=== PATIENT | female | born 1960 | race Caucasian/White ===

== ENCOUNTER 2017-11-09 11:20 | Observation (INO) | payer BC ==
[2017-11-09] MEDS ORDERED: SODIUM CHLORIDE 0.9% 500 ML IV STA (11:34)
[2017-11-09] MEDS ORDERED: ASPIRIN 81 MG PO STA (11:34)
[2017-11-09] MEDS ORDERED: NITROGLYCERIN SL TABS 0.4 MG TAB SUBLINGUAL STA (11:45)
--- NOTE | 2017-11-09 11:45 | ED ---
General Adult HPI - General Chief complaint: Chest Pain Stated complaint: chest pressure Time Seen by Provider: 11/09/17 11:34 Source: patient, RN notes reviewed Mode of arrival: ambulatory Limitations: no limitations - History of Present Illness Initial comments: 57-year-old female presents to the emergency department with a chief complaint of left-sided chest pain and left-sided neck pain. She states she's been having this on and off for the last week or so. She does admit to history of heart stent in the past. She states that she was shortness of breath and did have an episode of nausea vomiting. She has been sweaty with this on and off as well. She called her psychology intern and she was referred here. She states she did take her baby aspirin this morning. Patient was concerned due to the continued pain so she thought that she should be evaluated.Patient denies any recent fever, chills, back pain, abdominal pain,numbness or tingling, dysuria or hematuria, constipation or diarrhea, headaches or visual changes, or any other current symptoms. - Related Data Home Medications Medication Instructions Recorded Confirmed ALPRAZolam [Xanax] 1 mg PO BID 09/04/14 11/09/17 Aspirin 81 mg PO DAILY 09/04/14 11/09/17 Enalapril [Vasotec] 20 mg PO BID 09/04/14 11/09/17 Metoprolol Tartrate [Lopressor] 100 mg PO BID 09/04/14 11/09/17 Omeprazole [PriLOSEC] 20 mg PO BID 09/04/14 11/09/17 Prasugrel [Effient] 10 mg PO DAILY 09/04/14 11/09/17 Simvastatin [Zocor] 40 mg PO DAILY 09/04/14 11/09/17 amLODIPine [Norvasc] 5 mg PO DAILY 09/04/14 11/09/17 Cholecalciferol [Vitamin D3] 2,000 unit PO DAILY 01/10/16 11/09/17 traZODone HCL 150 - 300 mg PO HS 04/01/16 11/09/17 Folic Acid 1 mg PO DAILY 11/09/17 11/09/17 Allergies Allergy/AdvReac Type Severity Reaction Status Date / Time atorvastatin calcium Allergy Severe Swelling Verified 11/09/17 12:01 [From Lipitor] Penicillins Allergy Severe THROAT Verified 11/09/17 12:01 SWELLS pregabalin [From Lyrica] Allergy Intermediate Hallucinati Verified 11/09/17 12: 01 ons hydrocodone bitartrate AdvReac Intermediate SENSITIVITY Verified 11/09/17 12:01 [From Vicodin] Review of Systems ROS Statement: Those systems with pertinent positive or pertinent negative responses have been documented in the HPI. ROS Other: All systems not noted in ROS Statement are negative. Past Medical History Past Medical History: Cancer, Chest Pain / Angina, CVA/TIA, GERD/Reflux, Hyperlipidemia, Hypertension, Myocardial Infarction ([place]), Seizure Disorder Additional Past Medical History / Comment(s): ovarian ca, uterine ca, liver mass , pituitary tumor- was in ER 09/04/14 with chest pain-discharged 09/05/14 Last Myocardial Infarction Date:: 2005 History of Any Multi-Drug Resistant Organisms: None Reported Past Surgical History: Bariatric Surgery, Ear Surgery, Heart Catheterization With Stent Additional Past Surgical History / Comment(s): oopherectomy, partial hysterectomy,lap band 2011- removed & gastric sleeve in 2012(Dr. Maria)Lt ear surgery, heart cath with stent 2005- not sure if she had stent in 2011. Past Anesthesia/Blood Transfusion Reactions: Previous Problems w/ Anesthesia Additional Past Anesthesia/Blood Transfusion Reaction / Comment(s): hx claustraphobia Date of Last Stent Placement:: 2011? Past Psychological History: Anxiety, Depression Smoking Status: Current every day smoker Past Alcohol Use History: None Reported Past Drug Use History: Marijuana - Past Family History Mother Family Medical History: Cancer, COPD, CVA/TIA, Dementia, Hypertension Additional Family Medical History / Comment(s): colon cancer, heart disease, depression, 07/20/14 Father Family Medical History: Cancer, Diabetes Mellitus, Hypertension, Myocardial Infarction ([place]) Additional Family Medical History / Comment(s): Colon cancer, bipolar, depression Sister(s) Family Medical History: Cancer Additional Family Medical History / Comment(s): 2 sisters with ovarian & uterine ca-one 2013 General Exam - General Exam Comments Initial Comments: General: The patient is awake and alert, in no distress, and does not appear acutely ill. Eye: Pupils are equal, round and reactive to light, extra-ocular movements are intact; there is normal conjunctiva bilaterally. No signs of icterus. Ears, nose, mouth and throat: There are moist mucous membranes and no oral lesions. Neck: The neck is supple, there is no tenderness. Cardiovascular: There is a regular rate and rhythm. No murmur, rub or gallop is appreciated. Respiratory: Lungs are clear to auscultation, respirations are non-labored, breath sounds are equal. No wheezes, stridor, rales, or rhonchi. Gastrointestinal: Soft, non-distended, non-tender abdomen without masses or organomegaly noted. There is no rebound or guarding present. No CVA tenderness. Bowel sounds are unremarkable. Back: There is no tenderness to palpation in the midline. There is no obvious deformity. No rashes noted. Musculoskeletal: Normal ROM, no tenderness, There is no pedal edema. There is no calf tenderness or swelling. Sensation intact. Pulses equal bilaterally 2+. Neurological: CN II-XII intact, There are no obvious motor or sensory deficits. Coordination appears grossly intact. Speech is normal. Skin: Skin is warm and dry and no rashes or lesions are noted. Psychiatric: Cooperative, appropriate mood & affect, normal judgment. Limitations: no limitations Course Vital Signs 11/09/17 11:24 Temperature 97.0 F L Pulse Rate 65 Respiratory 18 Rate Blood Pressure 167/99 O2 Sat by Pulse 100 Oximetry EKG Findings - EKG Comments: EKG Findings:: normal sinus rhythm 60 bpm, normal axis, no atopy, no S-T depressions or elevations, patient does have T-wave inversion in V4 and V5 as well as V3, prolonged QT Medical Decision Making - Medical Decision Making 57-year-old female presents with left-sided chest pain. At this time patient's lab work has been reviewed. Patient continues to have this mild left-sided neck and chest pain. With her history of stents we will admit the patient for unstable angina. Dr. Spear was discussed with by Dr. Fierro who does agree to the admission. - Lab Data Result diagrams: 11/09/17 12:03 11/09/17 12:03 Lab Results 11/09/17 11/09/17 11/09/17 Range/Units 12:03 12:03 12:03 WBC 9.7 (3.8-10.6) k/uL RBC 4.64 (3.80-5.40) m/uL Hgb 12.0 (11.4-16.0) gm/dL Hct 38.3 (34.0-46.0) % MCV 82.4 (80.0-100.0) fL MCH 25.9 (25.0-35.0) pg MCHC 31.5 (31.0-37.0) g/dL RDW 15.0 (11.5-15.5) % Plt Count 366 (150-450) k/uL Neutrophils % 71 % Lymphocytes % 23 % Monocytes % 4 % Eosinophils % 1 % Basophils % 0 % Neutrophils # 6.9 (1.3-7.7) k/uL Lymphocytes # 2.2 (1.0-4.8) k/uL Monocytes # 0.3 (0-1.0) k/uL Eosinophils # 0.1 (0-0.7) k/uL Basophils # 0.0 (0-0.2) k/uL PT (9.0-12.0) sec INR (<1.2) APTT (22.0-30.0) sec Sodium 147 H (137-145) mmol/L Potassium 4.1 (3.5-5.1) mmol/L Chloride 109 H (98-107) mmol/L Carbon Dioxide 24 (22-30) mmol/L Anion Gap 14 mmol/L BUN 10 (7-17) mg/dL Creatinine 0.70 (0.52-1.04) mg/dL Est GFR (CKD-EPI)AfAm >90 (>60 ml/min/1.73 sqM) Est GFR (CKD-EPI)NonAf >90 (>60 ml/min/1.73 sqM) Glucose 111 H (74-99) mg/dL Calcium 9.5 (8.4-10.2) mg/dL Magnesium 2.0 (1.6-2.3) mg/dL Total Bilirubin 0.8 (0.2-1.3) mg/dL AST 16 (14-36) U/L ALT 14 (9-52) U/L Alkaline Phosphatase 64 (38-126) U/L Total Creatine Kinase 58 (30-135) U/L CK-MB (CK-2) <0.2 (0.0-2.4) ng/mL CK-MB (CK-2) Rel Index Troponin I <0.012 (0.000-0.034) ng/mL Total Protein 7.1 (6.3-8.2) g/dL Albumin 4.3 (3.5-5.0) g/dL Urine Color Urine Appearance (Clear) Urine pH (5.0-8.0) Ur Specific C[place] (1.001-1.035) Urine Protein (Negative) Urine Glucose (UA) (Negative) Urine Ketones (Negative) Urine Blood (Negative) Urine Nitrite (Negative) Urine Bilirubin (Negative) Urine Urobilinogen (<2.0) mg/dL Ur Leukocyte Esterase (Negative) 11/09/17 11/09/17 Range/Units 12:03 12:03 WBC (3.8-10.6) k/uL RBC (3.80-5.40) m/uL Hgb (11.4-16.0) gm/dL Hct (34.0-46.0) % MCV (80.0-100.0) fL MCH (25.0-35.0) pg MCHC (31.0-37.0) g/dL RDW (11.5-15.5) % Plt Count (150-450) k/uL Neutrophils % % Lymphocytes % % Monocytes % % Eosinophils % % Basophils % % Neutrophils # (1.3-7.7) k/uL Lymphocytes # (1.0-4.8) k/uL Monocytes # (0-1.0) k/uL Eosinophils # (0-0.7) k/uL Basophils # (0-0.2) k/uL PT 10.8 (9.0-12.0) sec INR 1.1 (<1.2) APTT 26.6 (22.0-30.0) sec Sodium (137-145) mmol/L Potassium (3.5-5.1) mmol/L Chloride (98-107) mmol/L Carbon Dioxide (22-30) mmol/L Anion Gap mmol/L BUN (7-17) mg/dL Creatinine (0.52-1.04) mg/dL Est GFR (CKD-EPI)AfAm (>60 ml/min/1.73 sqM) Est GFR (CKD-EPI)NonAf (>60 ml/min/1.73 sqM) Glucose (74-99) mg/dL Calcium (8.4-10.2) mg/dL Magnesium (1.6-2.3) mg/dL Total Bilirubin (0.2-1.3) mg/dL AST (14-36) U/L ALT (9-52) U/L Alkaline Phosphatase (38-126) U/L Total Creatine Kinase (30-135) U/L CK-MB (CK-2) (0.0-2.4) ng/mL CK-MB (CK-2) Rel Index Troponin I (0.000-0.034) ng/mL Total Protein (6.3-8.2) g/dL Albumin (3.5-5.0) g/dL Urine Color Yellow Urine Appearance Clear (Clear) Urine pH 6.0 (5.0-8.0) Ur Specific [place] 1.010 (1.001-1.035) Urine Protein Negative (Negative) Urine Glucose (UA) Negative (Negative) Urine Ketones Trace H (Negative) Urine Blood Negative (Negative) Urine Nitrite Negative (Negative) Urine Bilirubin Negative (Negative) Urine Urobilinogen <2.0 (<2.0) mg/dL Ur Leukocyte Esterase Negative (Negative) Disposition Clinical Impression: Unstable angina pectoris Disposition: ADMITTED IP TO THIS [facility] Condition: Stable Referrals: Antonieta Olivia MD [Primary Care Provider] - 1-2 days Decision Date: 11/09/17 Decision Time: 13:29
[2017-11-09 12:16] LABS: Basophils % (A) 0 %; Eosinophils # (A) 0.1 k/uL (0-0.7); Eosinophils % (A) 1 %; HCT 38.3 % (34.0-46.0); Lymphocytes # (A) 2.2 k/uL (1.0-4.8); Lymphocytes % (A) 23 %; MCH 25.9 pg (25.0-35.0); MCHC 31.5 g/dL (31.0-37.0); MCV 82.4 fL (80.0-100.0); Mean Platelet Volume 7.4; Monocytes # (A) 0.3 k/uL (0-1.0); Monocytes % (A) 4 %; Neutrophils # (A) 6.9 k/uL (1.3-7.7); Neutrophils % (A) 71 %; Platelet Count 366 k/uL (150-450); RBC 4.64 m/uL (3.80-5.40); WBC 9.7 k/uL (3.8-10.6)
[2017-11-09 12:28] LABS: INR 1.1 (<1.2); Partial Thromboplastin Time 26.6 sec (22.0-30.0); Prothrombin Time 10.8 sec (9.0-12.0)
[2017-11-09 12:34] LABS: Appearance,Urine Clear (Clear); Bilirubin,Urine Negative (Negative); Blood,Urine Negative (Negative); Color,Urine Yellow; Glucose,Urine (UA) Negative (Negative); Ketones,Urine Trace (Negative); Leukocyte Esterase,Urine Negative (Negative); Nitrite,Urine Negative (Negative); Protein,Urine Negative (Negative); Urobilinogen,Urine <2.0 mg/dL (<2.0)
--- NOTE | 2017-11-09 12:34 | XR ---
EXAMINATION TYPE: XR chest 2V DATE OF EXAM: 11/09/2017 COMPARISON: Prior chest x-ray 01/10/2016 HISTORY: Chest pain TECHNIQUE: Frontal and lateral views of the chest are obtained. FINDINGS: There is no focal air space opacity, pleural effusion, or pneumothorax seen. There are ove rlying cardiac leads. There is a spinal curvature. The cardiac silhouette size is within normal limit s. The osseous structures are intact. IMPRESSION: No acute cardiopulmonary process.
[2017-11-09 12:44] LABS: ALT 14 U/L (9-52); AST 16 U/L (14-36); Albumin 4.3 g/dL (3.5-5.0); Alkaline Phosphatase 64 U/L (38-126); Anion Gap 14 mmol/L; Blood Urea Nitrogen 10 mg/dL (7-17); Calcium 9.5 mg/dL (8.4-10.2); Carbon Dioxide 24 mmol/L (22-30); Chloride 109 mmol/L (98-107); Glucose 111 mg/dL (74-99); Potassium 4.1 mmol/L (3.5-5.1); Sodium 147 mmol/L (137-145); Total Bilirubin 0.8 mg/dL (0.2-1.3); Total Protein 7.1 g/dL (6.3-8.2)
[2017-11-09 12:47] LABS: Creatine Kinase 58 U/L (30-135)
[2017-11-09 12:59] LABS: Creatine Kinase MB <0.2 ng/mL (0.0-2.4); Troponin I <0.012 ng/mL (0.000-0.034)
[2017-11-09] MEDS ORDERED: NITROGLYCERIN SL TABS 0.4 MG TAB SUBLINGUAL PRN (13:29)
[2017-11-09] MEDS ORDERED: HEPARIN SODIUM,PORCINE 5,000 UNIT/ML 1 ML VIAL IV ONE (13:29)
[2017-11-09] MEDS ORDERED: HEPARIN SOD,PORK IN 0.45% NACL 25,000 UNIT in 0.45% NACL 1 500ML.BAG IV SCH (13:30)
[2017-11-09] MEDS ORDERED: SODIUM CHLORIDE 0.9% 1,000 ML IV SCH (13:30)
--- NOTE | 2017-11-09 16:17 | P.HPIM ---
History of Present Illness H&P Date: 11/09/17 Chief Complaint: Chest tightness This is a 57-year-old female, a patient of [facility]. She has a known past medical history of myocardial infarction, coronary disease with cardiac stent, hyperlipidemia, hypertension, GERD, nicotine dependence, uterine cancer and pituitary tumor. Patient reports that for the past week she has had intermittent chest tightness on the left side of her chest that radiates up into the left side of her neck. Also having some shortness of breath, dizziness and sweating. [facility] and was told to present to the emergency room for Arctic workup. Her last stress test was in 2014 was negative. First set of troponins are negative. EKG showing normal sinus rhythm with a nonspecific T-wave abnormality. Patient's been started on IV heparin. Cardiology is consulted. Patient also reports having heartburn- like symptoms and his been taking her omeprazole. Denies any nausea or vomiting. Denies any bowel movement changes or urinary symptoms. Patient does get relief of the chest pain with nitro. Patient reports she is still having chest tightness and pressure currently. Each episode lasts only a few minutes. Review of Systems Review of systems as per HPI otherwise unremarkable Past Medical History Past Medical History: Cancer, Chest Pain / Angina, CVA/TIA, GERD/Reflux, Hyperlipidemia, Hypertension, Myocardial Infarction ([place]), Seizure Disorder Additional Past Medical History / Comment(s): ovarian ca, uterine ca. per previous hx:liver mass, pituitary tumor but pt denies any sx, chemo or radiation.stress test 2015 . "boarderline diabetic- no meds, no bs checks- watches diet" Last Myocardial Infarction Date:: 2005 History of Any Multi-Drug Resistant Organisms: None Reported Past Surgical History: Bariatric Surgery, Ear Surgery, Heart Catheterization With Stent Additional Past Surgical History / Comment(s): oopherectomy, partial hysterectomy,lap band 2011- removed & gastric sleeve in 2012(Dr. Maria)"Lt ear surgery stated has metal in ear so no mri's", heart cath with stent 2005- not sure if she had stent in 2011. Past Anesthesia/Blood Transfusion Reactions: Motion Sickness Additional Past Anesthesia/Blood Transfusion Reaction / Comment(s): hx claustraphobia Date of Last Stent Placement:: 2011? Smoking Status: Current every day smoker - Past Family History Mother Family Medical History: Cancer, COPD, CVA/TIA, Dementia, Hypertension Additional Family Medical History / Comment(s): colon cancer, heart disease, depression, 07/20/14 Father Family Medical History: Cancer, Diabetes Mellitus, Hypertension, Myocardial Infarction ([place]) Additional Family Medical History / Comment(s): Colon cancer, bipolar, depression Sister(s) Family Medical History: Cancer Additional Family Medical History / Comment(s): 2 sisters with ovarian & uterine ca-one 2013 Medications and Allergies Home Medications Medication Instructions Recorded Confirmed Type ALPRAZolam [Xanax] 1 mg PO BID 09/04/14 11/09/17 History Aspirin 81 mg PO DAILY 09/04/14 11/09/17 History Enalapril [Vasotec] 20 mg PO BID 09/04/14 11/09/17 History Metoprolol Tartrate [Lopressor] 100 mg PO BID 09/04/14 11/09/17 History Omeprazole [PriLOSEC] 20 mg PO BID 09/04/14 11/09/17 History Prasugrel [Effient] 10 mg PO DAILY 09/04/14 11/09/17 History Simvastatin [Zocor] 40 mg PO DAILY 09/04/14 11/09/17 History amLODIPine [Norvasc] 5 mg PO DAILY 09/04/14 11/09/17 History Cholecalciferol [Vitamin D3] 2,000 unit PO DAILY 01/10/16 11/09/17 History traZODone HCL 150 - 300 mg PO HS 04/01/16 11/09/17 History Folic Acid 1 mg PO DAILY 11/09/17 11/09/17 History Allergies Allergy/AdvReac Type Severity Reaction Status Date / Time atorvastatin calcium Allergy Severe Swelling Verified 11/09/17 12:01 [From Lipitor] Penicillins Allergy Severe THROAT Verified 11/09/17 12:01 SWELLS pregabalin [From Lyrica] Allergy Intermediate Hallucinati Verified 11/09/17 12: 01 ons hydrocodone bitartrate AdvReac Intermediate SENSITIVITY Verified 11/09/17 12:01 [From Vicodin] Physical Exam Vitals: Vital Signs Temp Pulse Pulse Resp BP BP Pulse Ox 11/09/17 15:54 60 17 11/09/17 14:53 97.6 F 60 17 161/77 99 11/09/17 14:32 97.0 F L 59 L 17 163/90 97 11/09/17 13:45 55 L 17 135/83 98 11/09/17 11:24 97.0 F L 65 18 167/99 100 Intake and Output 11/09/17 11/09/17 11/09/17 06:59 14:59 22:59 Other: Voiding Method Toilet Weight 67.3 kg Head normocephalic Neck supple Lungs clear to auscultation bilaterally no wheezing or crackles Heart regular rate and rhythm S1-S2, no rub or gallop Abdomen is soft nontender nondistended positive bowel sounds no hepatosplenomegaly Extremities no edema Neuro alert and orientated to 3 Results CBC & Chem 7: 11/09/17 12:03 11/09/17 12:03 Labs: Abnormal Lab Results - Last 24 Hours (Table) 11/09/17 11/09/17 Range/Units 12:03 12:03 Sodium 147 H (137-145) mmol/L Chloride 109 H (98-107) mmol/L Glucose 111 H (74-99) mg/dL Urine Ketones Trace H (Negative) Assessment and Plan Assessment: 1. Chest pressure and tightness on the left side of the chest radiating to the neck with shortness of breath, dizziness and diaphoresis. Cardiology consulted. Check serial cardiac enzymes. EKG showing a normal sinus rhythm. First troponin is negative. Last stress test 2015 negative. Chest x-ray negative. Patient started on IV heparin. Continue aspirin. Continue nitro as needed for chest pain 2. History of myocardial infarction with coronary disease and cardiac stents 3. Hyperlipidemia: Resume her statin 4. Essential hypertension: Blood pressures are elevated. Resume her Norvasc and lisinopril 5. GERD 6. Nicotine dependence: Patient is smoking about a pack and half a day. Refusing nicotine patch. Discussed smoking cessation for greater than 3 minutes with patient GI prophylaxis Protonix and DVT prophylaxis IV heparin Time with Patient: Greater than 30 (Greater than 50% of the total time spent in counseling and coordination of care.I performed an examination of the patient and discussed their management with the physician [employer]. I have reviewed the Physician Fire Range Technician's notes and agree with the documented findings and plan of care)
[2017-11-09] MEDS ORDERED: DEXTROSE 5% IN WATER 1,000 ML IV ONE (16:28)
[2017-11-09] MEDS: METOPROLOL TARTRATE 50 MG TAB PO SCH (18:22)
[2017-11-09] MEDS: LISINOPRIL 20 MG TAB PO SCH (18:23)
[2017-11-09] MEDS: ALPRAZolam 1 MG TAB PO SCH (19:26)
[2017-11-09] MEDS: traZODone HCL 50 MG TAB PO SCH (19:26)
[2017-11-09 20:16] LABS: Creatine Kinase 51 U/L (30-135)
[2017-11-09 20:28] LABS: Creatine Kinase MB <0.2 ng/mL (0.0-2.4); Troponin I <0.012 ng/mL (0.000-0.034)
[2017-11-10 01:17] LABS: Creatine Kinase 47 U/L (30-135)
[2017-11-10 01:27] LABS: Creatine Kinase MB <0.2 ng/mL (0.0-2.4)
[2017-11-10 01:31] LABS: Troponin I <0.012 ng/mL (0.000-0.034)
[2017-11-10] MEDS: PANTOPRAZOLE 40 MG TABLET PO SCH (03:30)
[2017-11-10 06:56] LABS: Basophils % (A) 1 %; Eosinophils # (A) 0.1 k/uL (0-0.7); Eosinophils % (A) 2 %; HCT 35.4 % (34.0-46.0); HGB 11.4 gm/dL (11.4-16.0); Lymphocytes # (A) 1.8 k/uL (1.0-4.8); Lymphocytes % (A) 38 %; MCH 26.3 pg (25.0-35.0); MCHC 32.1 g/dL (31.0-37.0); Mean Platelet Volume 7.4; Monocytes # (A) 0.3 k/uL (0-1.0); Monocytes % (A) 5 %; Neutrophils # (A) 2.5 k/uL (1.3-7.7); Neutrophils % (A) 52 %; Platelet Count 340 k/uL (150-450); RBC 4.31 m/uL (3.80-5.40); RDW 14.7 % (11.5-15.5); WBC 4.7 k/uL (3.8-10.6)
[2017-11-10 07:44] LABS: ALT 17 U/L (9-52); AST 20 U/L (14-36); Albumin 3.6 g/dL (3.5-5.0); Alkaline Phosphatase 54 U/L (38-126); Anion Gap 8 mmol/L; Blood Urea Nitrogen 10 mg/dL (7-17); Calcium 9.1 mg/dL (8.4-10.2); Carbon Dioxide 27 mmol/L (22-30); Chloride 107 mmol/L (98-107); Cholesterol 139 mg/dL (<200); Glucose 99 mg/dL (74-99); HDL Cholesterol 53 mg/dL (40-60); LDL Cholesterol,Calculated 69 mg/dL (0-99); Sodium 142 mmol/L (137-145); Total Bilirubin 0.8 mg/dL (0.2-1.3); Total Protein 6.1 g/dL (6.3-8.2); Triglycerides 85 mg/dL (<150)
[2017-11-10] MEDS ORDERED: SODIUM CHLORIDE 0.9% 1,000 ML in EMPTY BAG 1 BAG IV ONE (08:46)
[2017-11-10] MEDS ORDERED: ZOCOR PO SCH (09:00)
[2017-11-10] MEDS: CHOLECALCIFEROL 1,000 UNIT TAB PO SCH (09:38)
[2017-11-10] MEDS: ASPIRIN 325 MG TAB PO SCH (09:38)
[2017-11-10] MEDS: LISINOPRIL 20 MG TAB PO SCH ×2 (09:38→21:04)
[2017-11-10] MEDS: amLODIPine 5 MG TAB PO SCH (09:38)
[2017-11-10] MEDS: PRASUGREL 10 MG TAB PO SCH (09:39)
[2017-11-10] MEDS: ALPRAZolam 1 MG TAB PO SCH ×2 (09:39→21:04)
[2017-11-10] MEDS: METOPROLOL TARTRATE 50 MG TAB PO SCH ×2 (11:43→21:05)
--- NOTE | 2017-11-10 11:46 | P.PN ---
Subjective Progress Note Date: 11/10/17 This is a 57-year-old female, a patient of [facility]. She has a known past medical history of myocardial infarction, coronary disease with cardiac stent, hyperlipidemia, hypertension, GERD, nicotine dependence, uterine cancer and pituitary tumor. Patient reports that for the past week she has had intermittent chest tightness on the left side of her chest that radiates up into the left side of her neck. Also having some shortness of breath, dizziness and sweating. [facility] and was told to present to the emergency room for Arctic workup. Her last stress test was in 2014 was negative. First set of troponins are negative. EKG showing normal sinus rhythm with a nonspecific T-wave abnormality. Patient's been started on IV heparin. Cardiology is consulted. Patient also reports having heartburn- like symptoms and his been taking her omeprazole. Denies any nausea or vomiting. Denies any bowel movement changes or urinary symptoms. Patient does get relief of the chest pain with nitro. Patient reports she is still having chest tightness and pressure currently. Each episode lasts only a few minutes. 11/10/2017. Patient scheduled for a heart catheterization today. Still had some episodes of chest tightness through the night. Also has been complaining of significant heartburn. She denies any shortness of breath. Denies any vomiting. Denies any bowel movement changes or urinary symptoms Objective - Vital Signs Vital signs: Vital Signs Temp 98.5 F 11/10/17 08:00 Pulse 55 L 11/10/17 08:00 Resp 18 11/10/17 08:00 BP 103/70 11/10/17 08:00 Pulse Ox 98 11/10/17 08:00 Intake & Output 11/09/17 11/10/17 11/10/17 18:59 06:59 18:59 Intake Total 260 Balance 260 Weight 67.3 kg Intake: Oral 260 Other: Voiding Method Toilet Toilet Toilet # Voids 4 - Exam Head normocephalic Neck supple Lungs clear to auscultation bilaterally no wheezing or crackles Heart regular rate and rhythm S1-S2, no rub or gallop Abdomen is soft nontender nondistended positive bowel sounds no hepatosplenomegaly Extremities no edema Neuro alert and orientated to 3 - Labs CBC & Chem 7: 11/10/17 06:37 11/10/17 06:37 Labs: Abnormal Lab Results - Last 24 Hours (Table) 11/09/17 11/09/17 11/09/17 Range/Units 12:03 12:03 19:20 APTT 55.4 H (22.0-30.0) sec Sodium 147 H (137-145) mmol/L Chloride 109 H (98-107) mmol/L Glucose 111 H (74-99) mg/dL Total Protein (6.3-8.2) g/dL Urine Ketones Trace H (Negative) 11/10/17 11/10/17 Range/Units 06:37 06:37 APTT 45.1 H (22.0-30.0) sec Sodium (137-145) mmol/L Chloride (98-107) mmol/L Glucose (74-99) mg/dL Total Protein 6.1 L (6.3-8.2) g/dL Urine Ketones (Negative) Assessment and Plan Assessment: 1. Chest pressure and tightness on the left side of the chest radiating to the neck with shortness of breath, dizziness and diaphoresis. Evaluated by cardiology. They're planning to proceed with a heart catheterization today. EKG showing a normal sinus rhythm. Troponins negative 3 sets. Last stress test 2014 negative. Chest x-ray negative. Patient started on IV heparin. Continue aspirin. Continue nitro as needed for chest pain 2. History of myocardial infarction with coronary disease and cardiac stents 3. Hyperlipidemia: Resume her statin 4. Essential hypertension: Blood pressures are elevated. Resume her Norvasc and lisinopril 5. GERD 6. Nicotine dependence: Patient is smoking about a pack and half a day. Refusing nicotine patch. Discussed smoking cessation for greater than 3 minutes with patient 7. Hypernatremia and hyperchloremia improved with IV fluids at D5 and will continue with current IV fluids since patient is nothing by mouth GI prophylaxis Protonix and DVT prophylaxis IV heparin I performed an examination of the patient and discussed their management with the physician [employer]. I have reviewed the Physician [employer]'s notes and agree with the documented findings and plan of care
[2017-11-10] MEDS ORDERED: FOLIC ACID 1 MG TAB PO SCH (12:00)
--- NOTE | 2017-11-10 12:28 | CONS ---
CONSULTATION This is a 57-year-old lady with a known history of CAD, chronic tobacco abuse, anxiety disorder and also has hypertensive cardiovascular disease and hyperlipidemia. In 2005, she had stenting of proximal/mid LAD performed probably by me. Since then, she has seen Dr. Rodriguez on and off and the last hospitalization was in 2014 when she had an abnormal stress echo and went on to have a cardiac catheterization that revealed that the LAD was patent. There was no significant disease in other vessels. She was advised medical therapy, but apparently according to the patient, she has not followed up with him in the office. She came in mainly because of some squeezing discomfort in the left anterior chest radiating to the back and also to the left upper extremity as well as to the neck. The quality of the pain raises the possibility of angina. This occurred at rest, but she also notices with activity. She is on decent medications in the form of simvastatin, amlodipine, and metoprolol tartrate. However, she smokes at least 15 to 20 cigarettes on a daily basis and has not made serious efforts to quit smoking. At the time of my evaluation, she is comfortable. The quality of pain, risk factor profile and previous PCI suggests that we should proceed with coronary angiography. I discussed this in detail with the patient, explained to her that we will perform the procedure later on today. The rationale, risks, benefits, options were explained to her. She understands all details and wishes to proceed with the procedure. PAST MEDICAL HISTORY: 1. CAD with PCI in 2005 of LAD that was patent in 2014. 2. Hypertension. 3. Hyperlipidemia. 4. History of some anxiety disorder. MEDICATIONS: At home include amlodipine, metoprolol, simvastatin, prasugrel, aspirin 81 mg daily, and vitamin supplements. She also takes enalapril. ALLERGIES: Has some allergy to PENICILLIN, CODEINE, and also has she has been intolerant of ATORVASTATIN. PHYSICAL EXAMINATION: Blood pressure is about 110/70, pulse rate is 60 per minute, regular. HEENT: Unremarkable. Fundus was not examined by me. Neck is supple. No JVD. I do not hear a carotid bruit. There is no thyromegaly. Heart exam reveals S1, S2 heard normally without a rub murmur or gallop. Lungs are clear. Abdomen is soft, nontender. Lower extremities reveal palpable pulses. No edema. Central nervous system is normal. EKG revealed sinus mechanism with minor nonspecific ST-T changes in the precordial leads and apparently similar findings were seen in 2015 as well. Laboratory data suggests that the troponins are normal. No other significant abnormalities were detected. IMPRESSION: 1. Chest pain syndrome in a patient with significant risk factor profile. 2. Hypertension. 3. Hyperlipidemia. 4. History of PCI with LAD stenting in 2005, patent in 2014. RECOMMENDATIONS: I am recommending that we discontinue heparin, increase activity. Proceed with coronary angiography later on today. The rationale, risks, benefits, and options were explained to the patient. She understands all details and wishes to proceed with the procedure. MMODL / IJN: [id number] /
[2017-11-10] MEDS ORDERED: IV FLUID CONTINUATION 700 ML IV ONE (12:29)
[2017-11-10] MEDS: MIDAZOLAM 2 MG/2 ML VIAL IV ONE ×2 (12:42→12:48)
[2017-11-10] MEDS ORDERED: diphenhydrAMINE 50 MG/ML 1 ML VIAL IVP ONE (12:43)
[2017-11-10] MEDS ORDERED: LIDOCAINE 2% INJ 20 MG/ML SQ ONE (12:49)
[2017-11-10] MEDS ORDERED: NITROGLYCERIN SL TABS 0.4 MG TAB SUBLINGUAL ONE (12:54)
[2017-11-10] MEDS ORDERED: IOHEXOL 350 MG/ML (PER ML) 100ML BTL INJ ONE (13:06)
[2017-11-10] MEDS: MORPHINE SULFATE 4 MG/ML SYRINGE IV ONE ×2 (13:06→13:13)
[2017-11-10] MEDS: SODIUM CHLORIDE 0.9% 1,000 ML IV SCH (13:30)
[2017-11-10] MEDS ORDERED: ACETAMINOPHEN TAB 500 MG TAB PO PRN (17:26)
--- NOTE | 2017-11-10 19:07 | CC ---
CARDIAC CATHETERIZATION REPORT DATE OF SERVICE: 11/10/2017. PROCEDURE: Left heart catheterization and coronary angiography and left ventriculography. PERFORMED BY: Dr. Champ Rivas. ANESTHESIA: Moderate conscious sedation time 26 minutes. Patient was monitored closely for her oxygen saturation, vital signs and EKG. She was given a combination of Versed and Benadryl. CLINICAL INFORMATION: Mrs. Ly Turcios is a 57-year-old lady with a history of smoking, hypertension, hyperlipidemia and CAD. In 2005 she underwent stenting of proximal/mid LAD and dilatation of her diagonal branch. In August of [address] Rodriguez and underwent a cardiac cath which revealed that the LAD was patent. She came into the hospital with chest pain suggestive of angina, continued to have discomfort in the chest, and therefore was advised cardiac catheterization. Her enzymes were negative. PROCEDURE NOTE: Under local anesthesia and strict aseptic precautions, a 6-Arabic introducer was placed in the right femoral artery. Standard Jude catheters were used to perform coronary angiography and a pigtail catheter was used to check LV pressures. A left ventriculogram was performed in 30-degree GUARDADO projection. The sheath was taken out and a Perclose device used to secure hemostasis. Patient tolerated procedure well without complications. She was sent to the room in stable condition. There was no family available. Results were discussed with the patient. Images were also reviewed. CARDIAC CATHETERIZATION FINDINGS: The left ventricular end-diastolic pressure was about 18 mmHg without any gradient across the aortic valve. LEFT VENTRICULOGRAM: This was performed in 30-degree GUARDADO projection. The ejection fraction is 60% with good contractility. No evidence of any mitral regurgitation. CORONARY ANGIOGRAPHY FINDINGS: RIGHT CORONARY ARTERY: Technically a large dominant vessel, it has no significant disease. Minor irregularities. Distally bifurcates into large PLV, smaller PDA, both of which have no significant disease. LEFT MAIN CORONARY ARTERY: Short, patent, disease-free vessel that bifurcates into LAD and circumflex. LEFT ANTERIOR DESCENDING CORONARY ARTERY: Good-caliber vessel extends along the anterior wall, gives off a diagonal branch. The mid/proximal LAD that was stented is widely patent. Just before the stented segment, there is a 35% smooth narrowing. Beyond the stented segment, the caliber is good; runs all the way to the apex, supplying a sizable amount of myocardium. Gives off several septal and diagonal branches. The diagonal branch that comes off from the stented segment appears to have some narrowing, but the flow is brisk. This vessel was dilated at the time of stenting. LEFT POSTERIOR CIRCUMFLEX CORONARY ARTERY: Technically a nondominant vessel, it gives off a small obtuse marginal proximally and continues distally as a posterolateral branch. There is no significant disease in the nondominant, yet good distribution and good-caliber circumflex system. FINAL IMPRESSION: This patient has a right-dominant system, probably a codominant system. No significant disease, and the previously stented LAD is widely patent with a 35% smooth narrowing just before the stented segment. Left ventricular pressures are elevated. Ejection fraction is about 60% without mitral regurgitation. Findings were discussed with the patient. No family was available. She was sent to the room in a stable condition. MMODL / IJN: [id number] /
--- NOTE | 2017-11-10 19:10 | LTR ---
November 10, 2017 To: Dr. Antonieta Olivia Re: Ly Turcios (60) Dear Dr. Olivia, Thank you for the opportunity to participate in the care of Mrs. Turcios. Please find enclosed my detailed cardiac cath report for your records. Fortunately this lady does not have any significant obstructive CAD that requires intervention. Continued medical therapy with aggressive risk factor modification is advised. I have counseled her regarding the need to quit smoking. The patient seems somewhat convinced. I will follow her in the office, and she will also see you in a week or so after discharge. Thanks again for your referral. Please call with questions. With kindest regards. Sincerely, MD MARÍA Rizzo / TIA: [phone] /
[2017-11-10] MEDS: traZODone HCL 50 MG TAB PO SCH (21:05)
[2017-11-11] MEDS: SODIUM CHLORIDE 0.9% 1,000 ML IV SCH (05:13)
[2017-11-11 08:00] LABS: Basophils % (A) 1 %; Eosinophils # (A) 0.1 k/uL (0-0.7); Eosinophils % (A) 2 %; HCT 34.9 % (34.0-46.0); HGB 11.2 gm/dL (11.4-16.0); Lymphocytes # (A) 1.4 k/uL (1.0-4.8); Lymphocytes % (A) 25 %; MCH 26.3 pg (25.0-35.0); MCV 82.1 fL (80.0-100.0); Mean Platelet Volume 6.8; Monocytes # (A) 0.3 k/uL (0-1.0); Monocytes % (A) 6 %; Neutrophils # (A) 3.6 k/uL (1.3-7.7); Neutrophils % (A) 65 %; Platelet Count 325 k/uL (150-450); RBC 4.26 m/uL (3.80-5.40); RDW 14.5 % (11.5-15.5); WBC 5.5 k/uL (3.8-10.6)
[2017-11-11 08:07] LABS: ALT 16 U/L (9-52); AST 13 U/L (14-36); Albumin 3.8 g/dL (3.5-5.0); Alkaline Phosphatase 49 U/L (38-126); Anion Gap 9 mmol/L; Blood Urea Nitrogen 12 mg/dL (7-17); Calcium 9.1 mg/dL (8.4-10.2); Carbon Dioxide 25 mmol/L (22-30); Chloride 108 mmol/L (98-107); Glucose 89 mg/dL (74-99); Potassium 4.1 mmol/L (3.5-5.1); Sodium 142 mmol/L (137-145); Total Bilirubin 0.7 mg/dL (0.2-1.3); Total Protein 6.1 g/dL (6.3-8.2)
[2017-11-11 08:22] VITALS: BP 143/77; PULSE 63; RESP 18; TEMP 97.5
[2017-11-11] MEDS: CHOLECALCIFEROL 1,000 UNIT TAB PO SCH (08:32)
[2017-11-11] MEDS: PANTOPRAZOLE 40 MG TABLET PO SCH (08:32)
[2017-11-11] MEDS: LISINOPRIL 20 MG TAB PO SCH (08:33)
[2017-11-11] MEDS: PRASUGREL 10 MG TAB PO SCH (08:33)
[2017-11-11] MEDS: METOPROLOL TARTRATE 50 MG TAB PO SCH (08:33)
[2017-11-11] MEDS: amLODIPine 5 MG TAB PO SCH (08:34)
[2017-11-11] MEDS: ALPRAZolam 1 MG TAB PO SCH (08:34)
[2017-11-11] MEDS: ASPIRIN 325 MG TAB PO SCH (08:34)
--- NOTE | 2017-11-11 11:02 | P.DS ---
Providers Date of admission: 11/09/17 13:48 Expected date of discharge: 11/11/17 Attending physician: Aron Spear Consults: 11/09/17 13:29 Consult Physician Urgent Consulting Provider: Ovi Rivas Consult Reason/Comments: UA Do you want consulting provider notified?: Yes Primary care physician: [facility] Course: Diagnoses on discharge: 1. Chest pressure and tightness on the left side of the chest radiating to the neck with shortness of breath, dizziness and diaphoresis. Troponin levels were negative patient underwent cardiac catheterization which revealed no significant coronary artery disease at this time 2. History of myocardial infarction with coronary disease and cardiac stents 3. Hyperlipidemia: Resume her statin 4. Essential hypertension: Blood pressures are elevated. Resume her Norvasc and lisinopril 5. GERD 6. Nicotine dependence: Patient is smoking about a pack and half a day. Refusing nicotine patch. Discussed smoking cessation for greater than 3 minutes with patient 7. Hypernatremia and hyperchloremia improved with IV fluids at D5 and will continue with current IV fluids since patient is nothing by mouth Hospital course: This is a 57-year-old female, a patient of [facility]. She has a known past medical history of myocardial infarction, coronary disease with cardiac stent, hyperlipidemia, hypertension, GERD, nicotine dependence, uterine cancer and pituitary tumor. Patient reports that for the past week she has had intermittent chest tightness on the left side of her chest that radiates up into the left side of her neck. Also having some shortness of breath, dizziness and sweating. She notified [facility] and was told to present to the emergency room for Arctic workup. Her last stress test was in 2014 was negative. First set of troponins are negative. EKG showing normal sinus rhythm with a nonspecific T-wave abnormality. Patient's been started on IV heparin. Cardiology is consulted. Patient also reports having heartburn- like symptoms and his been taking her omeprazole. Denies any nausea or vomiting. Denies any bowel movement changes or urinary symptoms. Patient does get relief of the chest pain with nitro. Patient reports she is still having chest tightness and pressure currently. Each episode lasts only a few minutes. 11/10/2017. Patient scheduled for a heart catheterization today. Still had some episodes of chest tightness through the night. Also has been complaining of significant heartburn. She denies any shortness of breath. Denies any vomiting. Denies any bowel movement changes or urinary symptoms Patient underwent cardiac catheterization on 11/10/2017 which revealed no significant coronary artery disease, the previously stented LAD is widely patent with 35% smooth narrowing just before the stented segment left ventricular pressure are elevated and ejection fraction is 60% Patient was reevaluated by cardiology and was cleared for discharge on 2017. Medical treatment was recommended, no intervention was necessary during this admission. Patient Condition at Discharge: Stable Plan - Discharge Summary Discharge Rx Participant: Yes New Discharge Prescriptions: No Action amLODIPine [Norvasc] 5 mg PO DAILY Simvastatin [Zocor] 40 mg PO DAILY Prasugrel [Effient] 10 mg PO DAILY Aspirin 81 mg PO DAILY Omeprazole [PriLOSEC] 20 mg PO BID Metoprolol Tartrate [Lopressor] 100 mg PO BID Enalapril [Vasotec] 20 mg PO BID ALPRAZolam [Xanax] 1 mg PO BID Cholecalciferol [Vitamin D3] 2,000 unit PO DAILY traZODone HCL 150 - 300 mg PO HS Folic Acid 1 mg PO DAILY Discharge Medication List ALPRAZolam [Xanax] 1 mg PO BID 09/04/14 [History] Aspirin 81 mg PO DAILY 09/04/14 [History] Enalapril [Vasotec] 20 mg PO BID 09/04/14 [History] Metoprolol Tartrate [Lopressor] 100 mg PO BID 09/04/14 [History] Omeprazole [PriLOSEC] 20 mg PO BID 09/04/14 [History] Prasugrel [Effient] 10 mg PO DAILY 09/04/14 [History] Simvastatin [Zocor] 40 mg PO DAILY 09/04/14 [History] amLODIPine [Norvasc] 5 mg PO DAILY 09/04/14 [History] Cholecalciferol [Vitamin D3] 2,000 unit PO DAILY 01/10/16 [History] traZODone HCL 150 - 300 mg PO HS 04/01/16 [History] Folic Acid 1 mg PO DAILY 11/09/17 [History] Follow up Appointment(s)/Referral(s): Ovi Rivas MD [STAFF PHYSICIAN] - 11/19/17 1:00 pm Antonieta Olivia MD [Primary Care Provider] - 2 Weeks Patient Instructions/Handouts: *Surgery [facility] - After Heart Catheterization - [employer] Assistant Instructions Activity/Diet/Wound Care/Special Instructions: See Activity Restriction Instructions Discharge Disposition: HOME SELF-CARE
--- NOTE | 2017-11-11 20:38 | PN ---
PROGRESS NOTE Mrs. Turcios underwent a cardiac catheterization yesterday from right femoral approach. Her previously stented LAD was patent. No other significant disease was noted. She is asymptomatic. Blood pressure 120/70, pulse rate 70 per minute. There is no JVD or carotid bruit. S1, S2 are heard normally. Lungs are clear. Abdomen is soft, nontender. Lower extremities reveal normal pulses. The right groin is clean and dry with a good pulse. I reviewed with her the cardiac cath findings, reassured her no intervention is necessary, but explained to her the importance of quitting smoking. She will be discharged today, and I will see her in the office in one week. We will continue current medical regimen. MMODL / IJN: [id number] /
== END 2017-11-11 09:45 | disposition home or self-care (01) ==
LOC: EC 11:20 → 3OBS 13:48
PROVIDERS: ADMIT Internal Medicine; ATTEND Internal Medicine
DX: R07.89 Other chest pain (principal); R06.02 Shortness of breath; R42 Dizziness and giddiness; R61 Generalized hyperhidrosis; Z95.5 Presence of coronary angioplasty implant and graft; I25.10 Atherosclerotic heart disease of native coronary artery without angina pectoris; I11.9 Hypertensive heart disease without heart failure; E78.5 Hyperlipidemia, unspecified; F41.9 Anxiety disorder, unspecified; K21.9 Gastro-esophageal reflux disease without esophagitis; E87.8 Other disorders of electrolyte and fluid balance, not elsewhere classified; E87.0 Hyperosmolality and hypernatremia; F32.9 Major depressive disorder, single episode, unspecified; G40.909 Epilepsy, unspecified, not intractable, without status epilepticus; F17.210 Nicotine dependence, cigarettes, uncomplicated; Z79.82 Long term (current) use of aspirin; Z79.02 Long term (current) use of antithrombotics/antiplatelets; Z79.899 Other long term (current) drug therapy; Z88.0 Allergy status to penicillin; Z88.5 Allergy status to narcotic agent; Z88.8 Allergy status to other drugs, medicaments and biological substances; I25.2 Old myocardial infarction; Z85.43 Personal history of malignant neoplasm of ovary; Z85.42 Personal history of malignant neoplasm of other parts of uterus; D49.7 Neoplasm of unspecified behavior of endocrine glands and other parts of nervous system; Z86.73 Personal history of transient ischemic attack (TIA), and cerebral infarction without residual deficits; Z80.49 Family history of malignant neoplasm of other genital organs; Z83.3 Family history of diabetes mellitus; Z82.49 Family history of ischemic heart disease and other diseases of the circulatory system; Z81.8 Family history of other mental and behavioral disorders; Z80.0 Family history of malignant neoplasm of digestive organs; Z82.5 Family history of asthma and other chronic lower respiratory diseases; Z82.3 Family history of stroke
CPT/HCPCS: 99152; 99153; 99285 ×2; 96365 ×2; 96376 ×2; 96361 ×2; 96366 ×2; 36415; 93005; 93458; 80061; 80053 ×3; 82550 ×2; 82553 ×2; 83735; 84484 ×2; 85025 ×3; 85610; 85730 ×2; 81003; 71046; G0378 ×3; C1894; C1769 ×2; C1760; J2001; J2250; J2270; J1200; J1644 ×2; Q9967

== ENCOUNTER → 2020-02-22 | Outpatient (CLI) | payer BC ==
--- NOTE | 2020-02-22 12:31 | CT ---
EXAMINATION TYPE: CT lumbar spine wo con DATE OF EXAM: 02/22/2020 COMPARISON: None HISTORY: Severe back pain, going down Lt leg CT DLP: 520.6 mGycm CONTRAST: None TECHNIQUE: CT of the lumbar spine is performed on a spiral scan at 3 mm thick sections. Reconstructed images are performed in the coronal and sagittal planes. FINDINGS: Rotoscoliosis is present. There is a minimal retrolisthesis of L3 posterior on L4. T12-L1: No focal disc herniation or significant disc bulge is evident. No spinal canal stenosis or neural foraminal stenosis is present. L1-L2: No focal disc herniation or significant disc bulge is evident. No spinal canal stenosis or n eural foraminal stenosis is present L2-L3: Mild disc bulge is present with anterior thecal sac flattening. No AP spinal canal stenosis pr esent. Some facet hypertrophy is present. Neural foramen are patent. L3-L4: Endplate sclerosis is present. There is loss of disc height to this level. Facet hypertrophy i s present. Neural foramen are moderately narrowed. Residual disc bulge has moderate anterior thecal s ac flattening. No AP spinal canal stenosis is present. L4-L5: No focal disc herniation or significant disc bulge is evident. No spinal canal stenosis is p resent. Facet hypertrophy is present. Neural foramen are patent L5-S1: No focal disc herniation or significant disc bulge is evident. No spinal canal stenosis or n eural foraminal stenosis is present Vertebral alignment appears normal. IMPRESSION: 1. Degenerative disc changes with endplate sclerosis at L3-4. 2. Minimal grade 1 retrolisthesis of L3 on L4. 3. Disc bulging L2-3, L3-4 with mild anterior thecal sac flattening at L2-3 and more moderate flatten ing L3-4.
== END | disposition home or self-care (01) ==
LOC: RADCTMAIN 07:10
PROVIDERS: ATTEND Physical Medicine & Rehabilitation
DX: M51.26 Other intervertebral disc displacement, lumbar region (principal); M43.16 Spondylolisthesis, lumbar region; M51.36 Other intervertebral disc degeneration, lumbar region; G95.89 Other specified diseases of spinal cord
CPT/HCPCS: 72131

== ENCOUNTER 2021-02-02 06:00 | Emergency (ER) | payer BC ==
[2021-02-02] MEDS ORDERED: LORazepam 2 MG/ML INJ IM STA (06:13)
--- NOTE | 2021-02-02 06:16 | ED ---
General Adult HPI - General Stated complaint: Petition Time Seen by Provider: 02/02/21 06:04 Source: RN notes reviewed - History of Present Illness Initial comments: 60-year-old female with past medical history of hyperlipidemia, hypertension presents to the emergency room for a chief complaint of methamphetamine intoxication. The police were called to patient's house for abnormal behavior. Patient was acutely psychotic. Patient admitted to smoking meth and there were meth pipes in the house. Patient was brought in by [employer] and [employer]. Petitioned was filed by police. Patient has no other complaints at this time including shortness of breath, chest pain, abdominal pain, nausea or vomiting, headache, or visual changes. - Related Data Home Medications Medication Instructions Recorded Confirmed ALPRAZolam [Xanax] 1 mg PO BID 09/04/14 11/09/17 Aspirin 81 mg PO DAILY 09/04/14 11/09/17 Enalapril [Vasotec] 20 mg PO BID 09/04/14 11/09/17 Metoprolol Tartrate [Lopressor] 100 mg PO BID 09/04/14 11/09/17 Omeprazole [PriLOSEC] 20 mg PO BID 09/04/14 11/09/17 Prasugrel [Effient] 10 mg PO DAILY 09/04/14 11/09/17 Simvastatin [Zocor] 40 mg PO DAILY 09/04/14 11/09/17 amLODIPine [Norvasc] 5 mg PO DAILY 09/04/14 11/09/17 Cholecalciferol [Vitamin D3] 2,000 unit PO DAILY 01/10/16 11/09/17 traZODone HCL 150 - 300 mg PO HS 04/01/16 11/09/17 Folic Acid 1 mg PO DAILY 11/09/17 11/09/17 Allergies Allergy/AdvReac Type Severity Reaction Status Date / Time atorvastatin calcium Allergy Severe Swelling Verified 11/09/17 12:01 [From Lipitor] Penicillins Allergy Severe THROAT Verified 11/09/17 12:01 SWELLS pregabalin [From Lyrica] Allergy Intermediate Hallucinati Verified 11/09/17 12:01 ons hydrocodone bitartrate AdvReac Intermediate SENSITIVITY Verified 11/09/17 12:01 [From Vicodin] Review of Systems ROS Statement: Those systems with pertinent positive or pertinent negative responses have been documented in the HPI. ROS Other: All systems not noted in ROS Statement are negative. Past Medical History Past Medical History: Cancer, Chest Pain / Angina, CVA/TIA, GERD/Reflux, Hyperlipidemia, Hypertension, Myocardial Infarction ([place]), Seizure Disorder Additional Past Medical History / Comment(s): ovarian ca, uterine ca. per previous hx:liver mass, pituitary tumor but pt denies any sx, chemo or radiation.stress test 2014 . "boarderline diabetic- no meds, no bs checks- watches diet" Last Myocardial Infarction Date:: 2005 History of Any Multi-Drug Resistant Organisms: None Reported Past Surgical History: Bariatric Surgery, Ear Surgery, Heart Catheterization With Stent Additional Past Surgical History / Comment(s): oopherectomy, partial hysterectomy,lap band 2011- removed & gastric sleeve in 2012(Dr. Maria)"Lt ear surgery stated has metal in ear so no mri's", heart cath with stent 2005- not sure if she had stent in 2011. Past Anesthesia/Blood Transfusion Reactions: Motion Sickness Additional Past Anesthesia/Blood Transfusion Reaction / Comment(s): hx claustraphobia Date of Last Stent Placement:: 2011? Past Psychological History: Anxiety, Depression Additional Psychological History / Comment(s): has had many family members pass away(mom07/20/14, sister 2013,cousin 07/23/14 and father 2012) & more.states having a hard time dealing with it- states sees a therapist. currently feels well mainatained on medications. Past Alcohol Use History: None Reported Additional Past Alcohol Use History / Comment(s): started smopking at age 16, smokes 14 cig per day Past Drug Use History: Marijuana Additional Drug Use History / Comment(s): pt stated she smoked marijuana occ. used last week. - Past Family History Mother Family Medical History: Cancer, COPD, CVA/TIA, Dementia, Hypertension Additional Family Medical History / Comment(s): colon cancer, heart disease, depression, 07/20/14 Father Family Medical History: Cancer, Diabetes Mellitus, Hypertension, Myocardial Infarction ([place]) Additional Family Medical History / Comment(s): Colon cancer, bipolar, depression Sister(s) Family Medical History: Cancer Additional Family Medical History / Comment(s): 2 sisters with ovarian & uterine ca-one 2013 General Exam General appearance: alert, appears intoxicated Head exam: Present: atraumatic Eye exam: Present: normal appearance, PERRL, EOMI ENT exam: Present: normal exam, mucous membranes moist Neck exam: Present: normal inspection, full ROM Respiratory exam: Present: normal lung sounds bilaterally. Absent: respiratory distress, wheezes Cardiovascular Exam: Present: regular rate, normal rhythm, normal heart sounds GI/Abdominal exam: Present: soft, normal bowel sounds. Absent: distended, tenderness, guarding, rebound, rigid Neurological exam: Present: alert Course Vital Signs 02/02/21 02/02/21 06:13 09:04 Temperature 97.1 F L 98 F Pulse Rate 94 88 Respiratory 22 18 Rate Blood Pressure 161/81 157/88 O2 Sat by Pulse 98 97 Oximetry Medical Decision Making - Medical Decision Making She was initially intoxicated with methamphetamine and acutely psychotic. She was monitored in the ER for 6 hours. She did have significant resolution of symptoms. She is currently sitting up and eating, speaking in full sentences. Patient was seen by EPS as she was petitioned by police. They recommend outpatient therapy as this is a improving acute psychosis secondary to drug use. Patient denying any suicidal or homicidal thoughts and reevaluation. Will be discharged home. Disposition Clinical Impression: Methamphetamine abuse Disposition: HOME SELF-CARE Condition: Good Instructions (If sedation given, give patient instructions): Polysubstance Abuse (ED) Additional Instructions: Please follow-up with your doctor in one to 2 days. Return to the emergency room for any worsening symptoms. Is patient prescribed a controlled substance at d/c from ED?: No Referrals: Heidy Toro DO [Primary Care Provider] - 1-2 days Time of Disposition: 09:17
[2021-02-02] MEDS ORDERED: LORazepam 2 MG/ML INJ IV STA (07:59)
[2021-02-02 09:05] VITALS: TEMP 98
[2021-02-02 12:32] VITALS: BP 157/89; PULSE 84; RESP 16
== END 2021-02-02 12:30 | disposition home or self-care (01) ==
LOC: EC 06:00
DX: F15.10 Other stimulant abuse, uncomplicated (principal); E11.9 Type 2 diabetes mellitus without complications; E78.5 Hyperlipidemia, unspecified; I10 Essential (primary) hypertension; I25.2 Old myocardial infarction; K21.9 Gastro-esophageal reflux disease without esophagitis; F17.290 Nicotine dependence, other tobacco product, uncomplicated; G40.909 Epilepsy, unspecified, not intractable, without status epilepticus; Z79.82 Long term (current) use of aspirin; Z86.73 Personal history of transient ischemic attack (TIA), and cerebral infarction without residual deficits; Z88.0 Allergy status to penicillin; Z88.5 Allergy status to narcotic agent; Z88.8 Allergy status to other drugs, medicaments and biological substances; Z79.899 Other long term (current) drug therapy
CPT/HCPCS: 82075; 99284; 96374; 96372; J2060

== ENCOUNTER → 2021-03-14 | Outpatient (CLI) | payer BC ==
--- NOTE | 2021-03-14 16:57 | XR ---
EXAMINATION TYPE: XR chest 2V DATE OF EXAM: 03/14/2021 COMPARISON: 11/09/2017 HISTORY: 60-year-old female tobacco abuse TECHNIQUE: Frontal and lateral views FINDINGS: The cardiomediastinal silhouette, aorta, and pulmonary vasculature are within normal limits. Possible subtle 8 mm nodule projecting just below the hilar region on the lateral view. No clear correlation on the frontal view. Otherwise, no consolidation or pleural effusion. IMPRESSION: Possibly 8mm infrahilar nodule seen on the lateral view. Given patient's history of tobacco abuse, co ntrast-enhanced CT chest can exclude an underlying pulmonary nodule.
== END | disposition home or self-care (01) ==
LOC: RADXRMAIN 11:43
PROVIDERS: ATTEND Physician Assistant Medical
DX: Z12.2 Encounter for screening for malignant neoplasm of respiratory organs (principal); Z72.0 Tobacco use
CPT/HCPCS: 71046

== ENCOUNTER → 2021-04-03 | Outpatient (CLI) | payer BC ==
[2021-04-03 16:05] LABS: African American GFR (CKD) >90 (>60 ml/min/1.73 sqM); Blood Urea Nitrogen 27 mg/dL (7-17); Non-African American GFR(CKD) 82 (>60 ml/min/1.73 sqM)
--- NOTE | 2021-04-03 16:34 | CT ---
EXAMINATION TYPE: CT chest w con DATE OF EXAM: 04/03/2021 COMPARISON: Chest x-ray March 14, 2021 HISTORY: abnormal cxr, weight loss CT DLP: 281 mGycm. Automated Exposure Control for Dose Reduction was Utilized. TECHNIQUE: CT scan of the thorax is performed following with IV Contrast, patient injected with 100 mL of Isovue 300. FINDINGS: LUNGS: The lungs are grossly clear, there is a 5 mm subpleural nodule coronal image 59 in the posteri or right mid lung less well seen on axial image 31. No pleural effusion or pneumothorax seen bilatera lly. No suspicious focal consolidation. The tracheobronchial tree is patent. MEDIASTINUM: There are no greater than 1 cm hilar or mediastinal lymph nodes. No cardiomegaly or pe ricardial effusion is seen. Ascending aorta measures up to 3.5 cm in diameter. Moderate calcificatio n in the LAD. OTHER: Surgical changes epigastric region noted. Possible remote gastric sleeve surgery with reexpans ion of sleeve. Scoliotic curvature of the thoracic spine. IMPRESSION: Confirmation of 5 mm subpleural posterior right mid lung nodule. Consider CT follow-up in 1 year time to reassess.
== END | disposition home or self-care (01) ==
LOC: RADCTMAIN 15:08
PROVIDERS: ATTEND Family Medicine
DX: R91.1 Solitary pulmonary nodule (principal)
CPT/HCPCS: 82565; 84520; 71260; 36415; Q9967

== ENCOUNTER 2021-04-17 07:35 | Day surgery (SDC) | payer BC ==
[2021-04-15 09:21] VITALS: BMI 18.4
--- NOTE | 2021-04-17 05:54 | P.GSHP ---
History of Present Illness H&P Date: 04/17/21 CHIEF COMPLAINT: Colon screen HISTORY OF PRESENT ILLNESS: The patient is a 60-year-old female who presents for colon screen. Lower endoscopy was offered for further evaluation and management. PAST MEDICAL HISTORY: Please see list. PAST SURGICAL HISTORY: Please see list. MEDICATIONS: Please see list. ALLERGIES: Please see list. SOCIAL HISTORY: No illicit drug use FAMILY HISTORY: No reports of Crohn disease or ulcerative colitis. REVIEW OF ORGAN SYSTEMS: CONSTITUTIONAL: No reports of fevers or chills. PHYSICAL EXAM: VITAL SIGNS: Stable GENERAL: Well-developed pleasant in no acute distress. HEENT: No scleral icterus. Extraocular movements grossly intact. Moist buccal mucosa. NECK: Supple without lymphadenopathy. CHEST: Unlabored respirations. Equal bilateral excursions. CARDIOVASCULAR: Regular rate and rhythm. Distal 2+ pulses. ABDOMEN: Soft, nontender, nondistended. MUSCULOSKELETAL: No clubbing, cyanosis, or edema. ASSESSMENT: 1. Colon screen. PLAN: 1. Recommend proceeding with a lower endoscopy Past Medical History Past Medical History: Cancer, Chest Pain / Angina, CVA/TIA, GERD/Reflux, Hyperlipidemia, Hypertension, Myocardial Infarction ([place]), Seizure Disorder Additional Past Medical History / Comment(s): ovarian ca, uterine ca. per previous hx:liver mass, pituitary tumor but pt denies any sx, chemo or radiation. . "borderline diabetic- no meds, no bs checks-watches diet" LAST SEIZURE-2019 Last Myocardial Infarction Date:: 2005 History of Any Multi-Drug Resistant Organisms: None Reported Past Surgical History: Bariatric Surgery, Ear Surgery, Heart Catheterization With Stent Additional Past Surgical History / Comment(s): oopherectomy, hysterectomy,lap band 2011- removed & gastric sleeve in 2012"Lt ear surgery stated has metal in ear so no mri's", heart cath with stent 2005- not sure if she had stent in 2011. INJECTION IN BACK FOR PAIN Past Anesthesia/Blood Transfusion Reactions: Motion Sickness Additional Past Anesthesia/Blood Transfusion Reaction / Comment(s): hx claustraphobia Date of Last Stent Placement:: 2011? Smoking Status: Former smoker - Past Family History Mother Family Medical History: Cancer, COPD, CVA/TIA, Dementia, Hypertension Additional Family Medical History / Comment(s): colon cancer, Father Family Medical History: Cancer, Diabetes Mellitus, Hypertension, Myocardial Infarction ([place]) Additional Family Medical History / Comment(s): Colon cancer, bipolar, depression Sister(s) Family Medical History: Cancer Additional Family Medical History / Comment(s): 2 sisters with ovarian & uterine ca-one 2013 Medications and Allergies Home Medications Medication Instructions Recorded Confirmed Type ALPRAZolam [Xanax] 1 mg PO TID PRN 09/04/14 04/15/21 History Aspirin 81 mg PO DAILY 09/04/14 04/15/21 History Enalapril [Vasotec] 20 mg PO BID 09/04/14 04/15/21 History Metoprolol Tartrate [Lopressor] 100 mg PO BID 09/04/14 04/15/21 History Omeprazole [PriLOSEC] 20 mg PO BID 09/04/14 04/15/21 History Simvastatin [Zocor] 40 mg PO DAILY 09/04/14 04/15/21 History amLODIPine [Norvasc] 5 mg PO DAILY 09/04/14 04/15/21 History traZODone HCL 150 - 300 mg PO HS 04/01/16 04/15/21 History Folic Acid 1 mg PO DAILY 11/09/17 04/15/21 History Cyanocobalamin (Vitamin B-12) 1,000 mcg PO DAILY 04/15/21 04/15/21 History [Vitamin B-12] Allergies Allergy/AdvReac Type Severity Reaction Status Date / Time atorvastatin calcium Allergy Severe Swelling Verified 04/15/21 08:29 [From Lipitor] Penicillins Allergy Severe THROAT Verified 04/15/21 08:29 SWELLS pregabalin [From Lyrica] Allergy Intermediate Hallucinati Verified 04/15/21 08:29 ons hydrocodone bitartrate AdvReac Intermediate SHAKING , Verified 04/15/21 08:29 [From Vicodin] NAUSEA
[~2021-04-17 07:35] MED LIST: LACTATED RINGERS 1,000 ML IV SCH; LIDOCAINE 1% (10MG/ML) FOR IV START INTRADERMA PRN
[2021-04-17 08:03] VITALS: TEMP 98
[2021-04-17] MEDS ORDERED: LIDOCAINE 1% INJ 10MG/ML (20 ML MDV) ONE (08:28)
[2021-04-17] MEDS ORDERED: PROPOFOL 10 MG/ML 20 ML VIAL IV ONE (08:28)
--- NOTE | 2021-04-17 08:51 | P.PCN ---
Date of Procedure: 04/17/21 Description of Procedure: PREOPERATIVE DIAGNOSIS: Colonoscopy screening, initial Family history colon cancer, sister, father, brothers POSTOPERATIVE DIAGNOSIS: Colonoscopy screening, initial Family history colon cancer, sister, father, brothers Diverticulosis, scattered. OPERATION: Colonoscopy to the cecum, ileocecal valve and appendiceal orifice. SURGEON: Rebeca Pereira MD. ANESTHESIA: MAC. INDICATIONS: The patient is a 60-year-old female who presents for colonoscopy screening. This is her first colonoscopy. Benefits and risks were described and informed consent was obtained. DESCRIPTION OF PROCEDURE: The patient had undergone Sutab prep. The patient had been brought into the operating room and laid in the left lateral decubitus position. After adequate intravenous sedation, the rectum was examined with 2% lidocaine jelly. No external hemorrhoids were encountered. The rectal tone was within normal limits. No lesions were palpated in the rectal vault. An Olympus colonoscope was advanced until the cecum, ileocecal valve and appendiceal orifice were clearly viewed. The prep was excellent. Scattered diverticulosis was encountered. No colonic polyps were found. No evidence of focal colitis was found. Retroflexion of the scope demonstrated grade 1 internal hemorrhoids without active bleeding or inflammation. The colon was desufflated. The patient had tolerated the procedure well. Withdrawal time was over 6 minutes. FINDINGS: Aronchick preparation quality scale 2 (1-5) Internal hemorrhoids, grade 1 No external prolapsed hemorrhoids. No arteriovenous malformations. No adenomatous polyps. No focal colitis. Scattered sigmoid diverticulosis. RECOMMENDATIONS: Lower endoscopy in 5 years2025 due to high risk history Plan - Discharge Summary Discharge Rx Participant: No New Discharge Prescriptions: Continue amLODIPine [Norvasc] 5 mg PO DAILY Simvastatin [Zocor] 40 mg PO DAILY Aspirin 81 mg PO DAILY Omeprazole [PriLOSEC] 20 mg PO BID Metoprolol Tartrate [Lopressor] 100 mg PO BID Enalapril [Vasotec] 20 mg PO BID ALPRAZolam [Xanax] 1 mg PO TID PRN PRN Reason: Anxiety traZODone HCL 150 - 300 mg PO HS Folic Acid 1 mg PO DAILY Cyanocobalamin (Vitamin B-12) [Vitamin B-12] 1,000 mcg PO DAILY Discharge Medication List ALPRAZolam [Xanax] 1 mg PO TID PRN 09/04/14 [History] Aspirin 81 mg PO DAILY 09/04/14 [History] Enalapril [Vasotec] 20 mg PO BID 09/04/14 [History] Metoprolol Tartrate [Lopressor] 100 mg PO BID 09/04/14 [History] Omeprazole [PriLOSEC] 20 mg PO BID 09/04/14 [History] Simvastatin [Zocor] 40 mg PO DAILY 09/04/14 [History] amLODIPine [Norvasc] 5 mg PO DAILY 09/04/14 [History] traZODone HCL 150 - 300 mg PO HS 04/01/16 [History] Folic Acid 1 mg PO DAILY 11/09/17 [History] Cyanocobalamin (Vitamin B-12) [Vitamin B-12] 1,000 mcg PO DAILY 04/15/21 [History] Follow up Appointment(s)/Referral(s): Rebeca Pereira MD [STAFF PHYSICIAN] - As Needed Patient Instructions/Handouts: Diverticulosis Diet (GEN), Diverticulosis (DC) Activity/Diet/Wound Care/Special Instructions: Repeat colonoscopy in 5 years, 2025 Discharge Disposition: HOME SELF-CARE
[2021-04-17 08:52] VITALS: RESP 16
[2021-04-17 09:07] VITALS: BP 131/80; PULSE 53
== END 2021-04-17 09:28 | disposition home or self-care (01) ==
LOC: ORWHC2ENDO 07:35
PROVIDERS: ATTEND Surgery Plastic and Reconstructive Surgery
DX: Z12.11 Encounter for screening for malignant neoplasm of colon (principal); K57.90 Diverticulosis of intestine, part unspecified, without perforation or abscess without bleeding; Z85.43 Personal history of malignant neoplasm of ovary; I25.2 Old myocardial infarction; E78.5 Hyperlipidemia, unspecified; I10 Essential (primary) hypertension; G40.909 Epilepsy, unspecified, not intractable, without status epilepticus; Z80.0 Family history of malignant neoplasm of digestive organs; Z79.82 Long term (current) use of aspirin
CPT/HCPCS: G0105; J2001; J2704

== ENCOUNTER 2021-05-03 20:22 | Inpatient (IN) | payer BC ==
[2021-05-03] MEDS ORDERED: LORazepam 2 MG/ML INJ IV STA (20:52)
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
[2021-05-03 21:44] LABS: Basophils # (A) 0.1 k/uL (0-0.2); Basophils % (A) 1 %; Eosinophils # (A) 0.1 k/uL (0-0.7); Eosinophils % (A) 1 %; HCT 43.5 % (34.0-46.0); HGB 13.9 gm/dL (11.4-16.0); Lymphocytes # (A) 1.7 k/uL (1.0-4.8); Lymphocytes % (A) 20 %; MCH 29.2 pg (25.0-35.0); MCV 91.2 fL (80.0-100.0); Mean Platelet Volume 6.9; Monocytes # (A) 0.4 k/uL (0-1.0); Monocytes % (A) 5 %; Neutrophils # (A) 6.3 k/uL (1.3-7.7); Neutrophils % (A) 73 %; Platelet Count 378 k/uL (150-450); RBC 4.77 m/uL (3.80-5.40); RDW 13.9 % (11.5-15.5); WBC 8.7 k/uL (3.8-10.6)
[2021-05-03 21:54] LABS: ALT 15 U/L (4-34); AST 27 U/L (14-36); Acetaminophen <10.0 ug/mL; African American GFR (CKD) 89 (>60 ml/min/1.73 sqM); Albumin 4.5 g/dL (3.5-5.0); Alkaline Phosphatase 76 U/L (38-126); Anion Gap 12 mmol/L; Blood Urea Nitrogen 18 mg/dL (7-17); Calcium 9.6 mg/dL (8.4-10.2); Carbon Dioxide 20 mmol/L (22-30); Chloride 105 mmol/L (98-107); Glucose 107 mg/dL (74-99); Non-African American GFR(CKD) 77 (>60 ml/min/1.73 sqM); Potassium 3.9 mmol/L (3.5-5.1); Salicylate <1.0 mg/dL; Sodium 137 mmol/L (137-145); Total Bilirubin 0.8 mg/dL (0.2-1.3); Total Protein 7.1 g/dL (6.3-8.2)
[2021-05-04 00:38] LABS: Cocaine Screen,Urine Not Detected (NotDetected); Phencyclidine Screen,Urine Not Detected (NotDetected)
[2021-05-04 00:39] LABS: Amphetamine Screen,Urine Detected (NotDetected); Barbiturate Screen,Urine Not Detected (NotDetected); Benzodiazepines Screen,Urine Detected (NotDetected); Methadone Screen, Urine Not Detected (NotDetected); Opiate Screen,Urine Not Detected (NotDetected); Oxycodone Screen, Urine Not Detected (NotDetected); Tricyclic Antidepressant,Urine Not Detected (NotDetected); Urn Cannabinoid Scrn Not Detected (NotDetected)
[2021-05-04] MEDS ORDERED: MAGNESIUM HYDROXIDE 2,400 MG/10 ML CUP PO PRN (03:16)
[2021-05-04] MEDS ORDERED: MAG HYDROX/AL HYDROX/SIMETH 30 ML CUP PO PRN (03:16)
[2021-05-04] MEDS ORDERED: ACETAMINOPHEN TAB 325 MG TAB PO PRN (03:16)
[2021-05-04] MEDS ORDERED: HALOPERIDOL LACTATE 5 MG/ML 1 ML VIAL IM PRN (03:23)
[2021-05-04] MEDS ORDERED: LORazepam 2 MG/ML INJ IM PRN (03:25)
[2021-05-04] MEDS: haloperidoL 5 MG TAB PO PRN (05:17)
[2021-05-04] MEDS: NICOTINE 14MG/24HR PATCH TRANSDERM SCH (08:26)
[2021-05-04] MEDS: amLODIPine 5 MG TAB PO SCH (11:22)
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
[2021-05-04 18:12] LABS: Hemoglobin A1C 5.7 % (4.0-6.0)
--- NOTE | 2021-05-04 18:43 | XR ---
EXAMINATION TYPE: XR foot complete RT DATE OF EXAM: 05/04/2021 COMPARISON: NONE HISTORY: Pain TECHNIQUE: 3 views FINDINGS: There is plantar calcaneal spurring. Metatarsals are intact. The toes appear intact. I see no fracture nor dislocation. IMPRESSION: Negative right foot exam. No fracture.
[2021-05-04] MEDS: lisinopriL 20 MG TAB PO SCH (21:29)
[2021-05-04] MEDS: PANTOPRAZOLE 40 MG TABLET PO SCH (21:29)
[2021-05-04] MEDS: traZODone HCL 50 MG TAB PO SCH (21:30)
[2021-05-04] MEDS: METOPROLOL TARTRATE 50 MG TAB PO SCH (21:30)
[2021-05-04] MEDS: LORazepam 1 MG TAB PO PRN (21:41)
[2021-05-05] MEDS: amLODIPine 5 MG TAB PO SCH (08:50)
[2021-05-05] MEDS: FOLIC ACID 1 MG TAB PO SCH (08:51)
[2021-05-05] MEDS: ASPIRIN 81 MG PO SCH (08:51)
[2021-05-05] MEDS: PANTOPRAZOLE 40 MG TABLET PO SCH ×2 (08:54→20:09)
[2021-05-05] MEDS: CYANOCOBALAMIN 500 MCG TAB PO SCH (08:54)
[2021-05-05] MEDS: METOPROLOL TARTRATE 50 MG TAB PO SCH ×2 (08:55→20:17)
[2021-05-05] MEDS: NICOTINE 14MG/24HR PATCH TRANSDERM SCH (08:55)
[2021-05-05] MEDS: lisinopriL 20 MG TAB PO SCH ×2 (08:55→20:17)
[2021-05-05] MEDS: NON FORMULARY DRUG (Simvastatin 40 MG Tab) PO SCH (09:00)
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
[2021-05-05 12:22] LABS: Chol/HDL Ratio 3.53
[2021-05-05] MEDS: MELOXICAM 7.5 MG TAB PO SCH (16:36)
[2021-05-05] MEDS: traZODone HCL 50 MG TAB PO SCH (20:09)
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
[2021-05-06] MEDS: CYANOCOBALAMIN 500 MCG TAB PO SCH (08:30)
[2021-05-06] MEDS: MELOXICAM 7.5 MG TAB PO SCH (08:30)
[2021-05-06] MEDS: PANTOPRAZOLE 40 MG TABLET PO SCH ×2 (08:30→19:55)
[2021-05-06] MEDS: FOLIC ACID 1 MG TAB PO SCH (08:31)
[2021-05-06] MEDS: ASPIRIN 81 MG PO SCH (08:32)
[2021-05-06] MEDS: lisinopriL 20 MG TAB PO SCH ×2 (08:34→19:55)
[2021-05-06] MEDS: amLODIPine 5 MG TAB PO SCH (08:34)
[2021-05-06] MEDS: NICOTINE 14MG/24HR PATCH TRANSDERM SCH (08:35)
[2021-05-06] MEDS: METOPROLOL TARTRATE 50 MG TAB PO SCH ×2 (08:35→19:56)
[2021-05-06] MEDS: NON FORMULARY DRUG (Simvastatin 40 MG Tab) PO SCH (08:36)
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
[2021-05-06] MEDS: traZODone HCL 50 MG TAB PO SCH (19:56)
[2021-05-07] MEDS: MELOXICAM 7.5 MG TAB PO SCH (08:50)
[2021-05-07] MEDS: ASPIRIN 81 MG PO SCH (08:50)
[2021-05-07] MEDS: PANTOPRAZOLE 40 MG TABLET PO SCH ×2 (08:50→22:44)
[2021-05-07] MEDS: CYANOCOBALAMIN 500 MCG TAB PO SCH (08:50)
[2021-05-07] MEDS: FOLIC ACID 1 MG TAB PO SCH (08:51)
[2021-05-07] MEDS: lisinopriL 20 MG TAB PO SCH ×2 (08:51→22:44)
[2021-05-07] MEDS: METOPROLOL TARTRATE 50 MG TAB PO SCH ×2 (08:51→22:43)
[2021-05-07] MEDS: NON FORMULARY DRUG (Simvastatin 40 MG Tab) PO SCH (08:51)
[2021-05-07] MEDS ORDERED: QUEtiapine 25 MG TAB PO STA (09:35)
--- NOTE | 2021-05-07 09:50 | P.PN ---
Progress Note - Text Progress Note Date: 05/07/21 Interval History: Patient was seen wandering the hallways and was directable and agreeable to sp eak with auto service writer in the office. Patient was acting fairly bizarre today and rather intrusive with auto service writer. She wanted to sit very close to auto service writer in the office and attempted to demonstrate something on auto service writer's hand. She was rambling tangential and illogical today. She states that her mood has been fluctuating. She appeared to have poor frustration tolerance today and was preoccupied with discharge. When asked about her medications she states that she used to take Seroquel however was not sure she wanted to take it any longer. Patient was displaying loose associations and speaking nonsensically about her . At this time patient denies any suicidal or homical ideations, intent or plan. Patient denies any auditory, visual hallucinations\\. Patient denies any side effects from the medications and has been compliant with meds. Mental Status Exam: General Appearance: Patient appears to be thin, older than stated age is alert, bizarre and difficult to redirect. Behavior: Patient is calmly seated without any agitated behavior. Bizarre Speech: Patient's speech is fluent and nonpressured. Mood/Affect: Mood is "okay", affect is congruent and constricted. Suicidality/Homicidality: Patient denies having any suicidal or homicidal ideation intent or plan. Perceptions: Patient denies any visual hallucinations and denies any auditory hallucinations Though content/process: Rambling, bizarre, loose associations. Focused on discharge. Memory and concentration: AOX3, grossly intact for the purposes of this session Judgment and insight: Poor Assessment Psychosis unspecified. Alcohol use disorder. methamphetamine abuse Nicotine use disorder. Plan: -Patient continues to meet criteria for inpatient psychiatric admission for symptom stabilization and safety. Patient has signed adult voluntary form and medication consent and was placed in patient's chart. -Medications: Discontinued trazodone. Start Zyprexa 2.5 mg daily +5 mg daily at bedtime for mood stabilization/psychosis. -Blood pressure medications were adjusted and decreased. We'll continue to monitor vitals and blood pressure for further adjustments. -When necessary Ativan and Haldol for agitation/aggression. -NRT - nicotine patch -SW on board for discharge planning. Encouraged the patient to participate in milieu. Due to patient acting more bizarre today and appears to be decompensating, will likely need to cancel the discharge for today and focus on medication management for stabilization before discharge.
[2021-05-07] MEDS: OLANZapine 2.5 MG TAB PO SCH (10:56)
[2021-05-07] MEDS: NICOTINE 14MG/24HR PATCH TRANSDERM SCH (11:51)
[2021-05-07 13:59] VITALS: BMI 16.9
[2021-05-07] MEDS ORDERED: OLANZapine 5 MG TAB PO SCH (21:00)
[2021-05-07] MEDS ORDERED: QUEtiapine 50 MG TAB PO SCH (21:00)
[2021-05-08 07:10] VITALS: RESP 16
[2021-05-08] MEDS: NICOTINE 14MG/24HR PATCH TRANSDERM SCH (09:00)
[2021-05-08] MEDS: FOLIC ACID 1 MG TAB PO SCH (09:02)
[2021-05-08] MEDS: ASPIRIN 81 MG PO SCH (09:02)
[2021-05-08] MEDS: PANTOPRAZOLE 40 MG TABLET PO SCH ×2 (09:02→20:16)
[2021-05-08] MEDS: OLANZapine 2.5 MG TAB PO SCH (09:02)
[2021-05-08] MEDS: MELOXICAM 7.5 MG TAB PO SCH (09:02)
[2021-05-08] MEDS: CYANOCOBALAMIN 500 MCG TAB PO SCH (09:02)
[2021-05-08] MEDS: NON FORMULARY DRUG (Simvastatin 40 MG Tab) PO SCH (09:03)
[2021-05-08] MEDS: METOPROLOL TARTRATE 50 MG TAB PO SCH (10:43)
[2021-05-08] MEDS: lisinopriL 20 MG TAB PO SCH (10:43)
--- NOTE | 2021-05-08 11:29 | P.PN ---
Progress Note - Text Progress Note Date: 05/08/21 Interval History: Patient was seen wandering the hallways and was directable and agreeable to sp desire with engineering writer in the office. Patient appeared to be mildly more appropriate today, less intrusive. She continues to ramble at times. she was complaining of poor energy today after taking her morning zyprexa. She claims that she did not have the best sleep last night was agreeable to take more Zyprexa at nighttime that. She states that she has been trying to go to groups and participated us that she can. She states that yesterday she was upset that she did not get discharge however today realizes that she would rather be treated better here on the unit then to go to early and have to come back to the hospital. She is showing mild improvement in her insight and judgment today. At this time patient denies any suicidal or homical ideations, intent or plan. Patient denies any auditory, visual hallucinations\\. Patient denies any side effects from the medications and has been compliant with meds. Mental Status Exam: General Appearance: Patient appears to be thin, older than stated age is alert, less bizarre today. Behavior: Patient is calmly seated without any agitated behavior. less bizarre today, more appropriate. Speech: Patient's speech is fluent and nonpressured. Mood/Affect: Mood is "ok", affect is congruent and constricted. Suicidality/Homicidality: Patient denies having any suicidal or homicidal ideation intent or plan. Perceptions: Patient denies any visual hallucinations and denies any auditory hallucinations Though content/process: Rambling, bizarre, loose associations, improving mildly. Focused on discharge. Memory and concentration: AOX3, grossly intact for the purposes of this session Judgment and insight: Poor, improving midlly Assessment: Psychosis unspecified. Alcohol use disorder. methamphetamine abuse Nicotine use disorder. Plan: -Patient continues to meet criteria for inpatient psychiatric admission for symptom stabilization and safety. Patient has signed adult voluntary form and medication consent and was placed in patient's chart. -Medications: change Zyprexa 7.5 mg daily at bedtime for mood stabilization/psychosis. -Blood pressure medications were discontinued. We'll continue to monitor vitals and blood pressure for further adjustments. -When necessary Ativan and Haldol for agitation/aggression. -NRT - nicotine patch -SW on board for discharge planning. Encouraged the patient to participate in milieu. will observe patient today and likely prepare for tomorrow d/c back home if patient is psychiatrically improved by then.
[2021-05-08] MEDS: LORazepam 1 MG TAB PO PRN (20:17)
[2021-05-08] MEDS ORDERED: OLANZapine 7.5 MG TAB PO SCH (21:00)
[2021-05-08] MEDS: haloperidoL 5 MG TAB PO PRN (21:45)
[2021-05-09 07:27] VITALS: BP 126/77; PULSE 96; TEMP 97.9
[2021-05-09] MEDS: NICOTINE 14MG/24HR PATCH TRANSDERM SCH (08:35)
[2021-05-09] MEDS: ASPIRIN 81 MG PO SCH (08:35)
[2021-05-09] MEDS: FOLIC ACID 1 MG TAB PO SCH (08:35)
[2021-05-09] MEDS: MELOXICAM 7.5 MG TAB PO SCH (08:36)
[2021-05-09] MEDS: CYANOCOBALAMIN 500 MCG TAB PO SCH (08:36)
[2021-05-09] MEDS: PANTOPRAZOLE 40 MG TABLET PO SCH (08:36)
[2021-05-09] MEDS: NON FORMULARY DRUG (Simvastatin 40 MG Tab) PO SCH (08:38)
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
== END 2021-05-09 10:30 | disposition home or self-care (01) | DRG 897 ==
LOC: EC 20:22 → 3MHU 05-04 02:14
PROVIDERS: ADMIT Psychiatry & Neurology Psychiatry; ATTEND Psychiatry & Neurology Psychiatry
DX: F10.10 Alcohol abuse, uncomplicated (principal); R16.0 Hepatomegaly, not elsewhere classified; E11.9 Type 2 diabetes mellitus without complications; F15.10 Other stimulant abuse, uncomplicated; Z20.822 Contact with and (suspected) exposure to COVID-19; G47.00 Insomnia, unspecified; E53.8 Deficiency of other specified B group vitamins; K21.9 Gastro-esophageal reflux disease without esophagitis; E78.5 Hyperlipidemia, unspecified; I10 Essential (primary) hypertension; I25.2 Old myocardial infarction; M79.671 Pain in right foot; R45.87 Impulsiveness; F17.210 Nicotine dependence, cigarettes, uncomplicated; Z71.6 Tobacco abuse counseling; Z79.82 Long term (current) use of aspirin; Z79.899 Other long term (current) drug therapy; Z98.84 Bariatric surgery status; Z56.0 Unemployment, unspecified; Z95.5 Presence of coronary angioplasty implant and graft; Z90.711 Acquired absence of uterus with remaining cervical stump; Z85.43 Personal history of malignant neoplasm of ovary; Z85.42 Personal history of malignant neoplasm of other parts of uterus; Z86.69 Personal history of other diseases of the nervous system and sense organs; Z86.73 Personal history of transient ischemic attack (TIA), and cerebral infarction without residual deficits; Z62.810 Personal history of physical and sexual abuse in childhood; Y04.0XXA Assault by unarmed brawl or fight, initial encounter; Z88.5 Allergy status to narcotic agent; Z88.0 Allergy status to penicillin; Z88.8 Allergy status to other drugs, medicaments and biological substances; Z80.0 Family history of malignant neoplasm of digestive organs; Z80.49 Family history of malignant neoplasm of other genital organs; Z81.8 Family history of other mental and behavioral disorders; Z82.5 Family history of asthma and other chronic lower respiratory diseases; Z82.49 Family history of ischemic heart disease and other diseases of the circulatory system; Z83.3 Family history of diabetes mellitus; Z80.41 Family history of malignant neoplasm of ovary
CPT/HCPCS: 36415; 80053; 80061; 80143; 80179; 80306; 82075; 83036; 84443; 85025; 87635; 96374; 99285

== ENCOUNTER → 2022-01-20 | Outpatient (CLI) | payer BC ==
[2022-01-20 11:00] LABS: HCT 38.7 % (37.2-46.3); HGB 11.5 g/dL (12.0-15.0); MCH 26.4 pg (27.0-32.0); MCHC 29.7 g/dL (32.0-37.0); MCV 88.8 fL (80.0-97.0); Mean Platelet Volume 9.6 fL (9.5-12.2); NRBC Per 100 WBC 0 /100 WBCS (0.0-0.0); Platelet Count 407 X 10*3/uL (140-440); RBC 4.36 X 10*6/uL (4.10-5.20); RDW 16.7 % (11.5-14.5)
[2022-01-20 11:30] LABS: ALT 14 U/L (8-44); AST 18 U/L (13-35); African American GFR (CKD) 92.2 (60.0-200.0); BUN/Creat Ratio 23.13 Ratio (12.00-20.00); Blood Urea Nitrogen 18.5 mg/dL (9.0-27.0); Calcium 8.9 mg/dL (8.7-10.3); Carbon Dioxide 23.9 mmol/L (20.0-27.5); Chloride 108 mmol/L (96-109); Chol/HDL Ratio 3.97 Ratio; Glucose 66 mg/dL (70-110); LDL Cholesterol,Calculated 157.9 mg/dL (0.0-131.0); Non-African American GFR(CKD) 79.6 (60.0-200.0); Potassium 4.8 mmol/L (3.5-5.5); Sodium 142 mmol/L (135-145)
== END | disposition home or self-care (01) ==
LOC: LABWHC1 07:43
PROVIDERS: ATTEND Internal Medicine Cardiovascular Disease
DX: I10 Essential (primary) hypertension (principal); R07.2 Precordial pain; E78.2 Mixed hyperlipidemia
CPT/HCPCS: 36415; 80048; 80061; 84443; 84450; 84460; 85027

== ENCOUNTER 2022-05-02 23:19 | Emergency (ER) | payer BC ==
[2022-05-02 23:43] VITALS: BP 180/100; PULSE 74; RESP 15; TEMP 98.5
--- NOTE | 2022-05-03 01:11 | XR ---
EXAMINATION TYPE: XR ankle complete LT DATE OF EXAM: 05/03/2022 COMPARISON: NONE HISTORY: Pain TECHNIQUE: 3 view FINDINGS: There is plantar calcaneal spurring. Ankle mortise is anatomic. No fracture seen. Subtalar joint is intact. IMPRESSION: No acute abnormality of the left ankle. No fracture.
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
--- NOTE | 2022-05-03 01:12 | XR ---
EXAMINATION TYPE: XR foot complete LT DATE OF EXAM: 05/03/2022 COMPARISON: NONE HISTORY: Pain TECHNIQUE: 3 views FINDINGS: Metatarsals appear intact. The toes are intact. I see no fracture nor dislocation. There is plantar calcaneal spurring. IMPRESSION: Calcaneal spurring. No fracture seen.
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
--- NOTE | 2022-05-03 01:15 | XR ---
EXAMINATION TYPE: XR elbow complete LT DATE OF EXAM: 05/03/2022 COMPARISON: NONE HISTORY: Pain TECHNIQUE: 3 views FINDINGS: Elbow joint spaces are normal. I see no fracture nor dislocation. No sign of elbow joint ef fusion. Radial head is intact. IMPRESSION: No acute abnormality of the left elbow.
--- NOTE | 2022-05-03 01:16 | XR ---
EXAMINATION TYPE: XR pelvis AP view DATE OF EXAM: 05/03/2022 COMPARISON: NONE HISTORY: Pain TECHNIQUE: Single view FINDINGS: The pelvic ring is intact. Proximal femurs and hip joints are intact. Sacroiliac joints are intact. IMPRESSION: Normal pelvis. No fracture
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
[2022-05-03] MEDS ORDERED: BACITRACIN OINT 1 EACH PACKET TOPICAL ONE (04:29)
[2022-05-03] MEDS ORDERED: ORPHENADRINE 30 MG/ML 2 ML VIAL IM STA (04:29)
[2022-05-03] MEDS ORDERED: LIDOCAINE 5% PATCH TOPICAL STA (04:51)
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
[2022-05-03] MEDS ORDERED: LIDOCAINE 5% PATCH TOPICAL SCH (09:00)
== END 2022-05-03 05:33 | disposition home or self-care (01) ==
LOC: EC 23:19
DX: S50.312A Abrasion of left elbow, initial encounter (principal); M54.50 Low back pain, unspecified; K21.9 Gastro-esophageal reflux disease without esophagitis; E78.5 Hyperlipidemia, unspecified; I10 Essential (primary) hypertension; Z86.73 Personal history of transient ischemic attack (TIA), and cerebral infarction without residual deficits; I25.2 Old myocardial infarction; Z88.8 Allergy status to other drugs, medicaments and biological substances; Z88.0 Allergy status to penicillin; Z88.5 Allergy status to narcotic agent; Z79.82 Long term (current) use of aspirin; Z79.899 Other long term (current) drug therapy; V49.40XA Driver injured in collision with unspecified motor vehicles in traffic accident, initial encounter
CPT/HCPCS: 99284; 96372; 72170; 73030; 73080; 73610; 73630; 71045; 72125; 70450; J2360

== ENCOUNTER 2022-07-03 05:17 | Emergency (ER) | payer BC ==
[2022-07-03 05:23] VITALS: RESP 18; TEMP 98.3
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
[2022-07-03] MEDS ORDERED: PROCHLORPERAZINE 10 MG TAB PO STA (06:08)
[2022-07-03] MEDS ORDERED: diphenhydrAMINE 50 MG CAP PO STA (06:08)
[2022-07-03] MEDS ORDERED: HYDROmorphone 1 MG/ML 1 ML SYRINGE IM STA (06:08)
[2022-07-03] MEDS ORDERED: dexAMETHasone 2 MG TAB PO STA (06:08)
[2022-07-03] MEDS ORDERED: IBUPROFEN 800 MG TAB PO STA (06:08)
[2022-07-03 06:56] VITALS: BP 132/82; PULSE 86
== END 2022-07-03 06:55 | disposition home or self-care (01) ==
LOC: EC 05:17
DX: G43.909 Migraine, unspecified, not intractable, without status migrainosus (principal); I10 Essential (primary) hypertension; G45.9 Transient cerebral ischemic attack, unspecified; I25.2 Old myocardial infarction; F41.9 Anxiety disorder, unspecified; F32.A Depression, unspecified; F17.200 Nicotine dependence, unspecified, uncomplicated; Z79.82 Long term (current) use of aspirin; Z79.899 Other long term (current) drug therapy; Z88.8 Allergy status to other drugs, medicaments and biological substances; Z88.5 Allergy status to narcotic agent; Z88.0 Allergy status to penicillin
CPT/HCPCS: 99283; 96372; S0183; J1170; J8540

== ENCOUNTER → 2023-03-27 | Outpatient (CLI) | payer BC ==
[2023-03-27 16:04] LABS: ALT 15 U/L (8-44); AST 16 U/L (13-35); Chol/HDL Ratio 2.72 Ratio; LDL Cholesterol,Calculated 94.5 mg/dL (0.0-131.0)
== END | disposition home or self-care (01) ==
LOC: LABWHC1 09:17
PROVIDERS: ATTEND Internal Medicine Cardiovascular Disease
DX: E78.2 Mixed hyperlipidemia (principal)
CPT/HCPCS: 36415; 80061; 84450; 84460

== ENCOUNTER → 2023-06-22 | Outpatient (CLI) | payer BC ==
--- NOTE | 2023-06-23 08:38 | CT ---
EXAMINATION TYPE: CT lumbar spine wo con CT DLP: 370.0 mGycm, Automated exposure control for dose reduction was used. DATE OF EXAM: 06/22/2023 3:47 PM COMPARISON: 02/22/2020.. 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 TECHNIQUE: Multiple axial images were obtained from the midportion of T11 through the sacroiliac shelley nts. Soft tissue and bone windows in coronal and sagittal planes were obtained and reviewed. 3-D ref ormats of the bones were created on a separate workstation and submitted for review. Contrast used: none. Oral contrast used: none. FINDINGS: Alignment: There are 5 lumbar type vertebral bodies within normal alignment. Bone: No evidence of fracture is identified. Multilevel degeneration changes worse at L3-L4 with los s of disc space with osteophytes and some adjacent sclerosis of the adjoining endplates of L3 and L4. Facet joint arthropathy throughout the spine worse in the lower spine. There is pseudoarticulation o f the spinous processes. Discs: T12-L1: No spinal canal or neural foraminal stenosis is identified. L1-L2: No spinal canal or neural foraminal stenosis is identified. L2-L3: No spinal canal or neural foraminal stenosis is identified. L3-L4: Facet joint arthropathy and disc bulging result with mild spinal canal stenosis and mild bilat eral neural foraminal stenosis. L4-L5: Facet joint arthropathy and disc bulging result with mild spinal canal stenosis and mild bilat eral neural foraminal stenosis. L5-S1: Facet joint arthropathy and disc bulging result with mild spinal canal stenosis and mild bilat eral neural foraminal stenosis. Other: Atherosclerosis of the arterial vasculature. IMPRESSION: 1. No evidence for spinal fracture. 2. No evidence for significant spinal canal or neural foraminal stenosis. 3. There is pseudoarticulation of the spinous processes. Correlate for Baastrup's disease.
== END | disposition home or self-care (01) ==
LOC: RADCTMAIN 15:25
PROVIDERS: ATTEND Physical Medicine & Rehabilitation
DX: M47.27 Other spondylosis with radiculopathy, lumbosacral region (principal); M43.16 Spondylolisthesis, lumbar region; M48.062 Spinal stenosis, lumbar region with neurogenic claudication; M51.17 Intervertebral disc disorders with radiculopathy, lumbosacral region; M43.8X6 Other specified deforming dorsopathies, lumbar region
CPT/HCPCS: 72131

== ENCOUNTER → 2023-09-25 | Outpatient (CLI) | payer BC ==
--- NOTE | 2023-09-28 19:29 | MM ---
Reason for Exam: Screening (asymptomatic). Last mammogram was performed 7 year(s) and 4 month(s) ago. Patient History: Menarche at age 13. Patient has no children. Hysterectomy at age 40. Endometrial cancer. Maternal aunt had breast cancer, age 45. Sister had breast cancer, age 56. Risk Values: Stacy 5 year model risk: 3.1%. NCI Lifetime model risk: 12.8%. Prior Study Comparison: 06/10/2006 Bilateral Screening Mammogram, [facility]. 02/09/2013 Bilateral Screening Mammogram, [facility]. 05/20/2016 Bilateral Screening Mammogram, [facility]. Tissue Density: There are scattered fibroglandular densities. Findings: Analyzed By CAD. There is no suspicious group of microcalcifications or new suspicious mass in either breast. Overall Assessment: Negative, BI-RAD 1 Management: Screening Mammogram of both breasts in 1 year. See note below in regards to patient's increased 5 year Stacy score. Patient should continue monthly self-breast exams. A clinical breast exam by your physician is recommended on an annual basis. This exam should not preclude additional follow-up of suspicious palpable abnormalities. Note on Stacy scores and lifetime risk: 1. A Stacy score greater than 3% is considered moderate risk. If this is the case, consider specialist referral to assess eligibility for a risk reducing agent. 2. If overall lifetime risk for the development of breast cancer is 20% or higher, the patient may qualify for future screening with alternating mammogram and breast MRI. Electronically signed and approved by: Yocasta Stephens M.D. Radiologist
== END | disposition home or self-care (01) ==
LOC: RADMAMWWP 07:18
PROVIDERS: ATTEND Family Medicine
DX: Z12.31 Encounter for screening mammogram for malignant neoplasm of breast (principal); Z80.3 Family history of malignant neoplasm of breast
CPT/HCPCS: 77067

== ENCOUNTER 2024-06-15 20:45 | Emergency (ER) | payer BC ==
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
[2024-06-15 23:07] VITALS: BP 183/113; PULSE 106; RESP 18; TEMP 98.2
== END 2024-06-15 23:02 | disposition home or self-care (01) ==
LOC: EC 20:45
DX: F10.129 Alcohol abuse with intoxication, unspecified (principal); F17.200 Nicotine dependence, unspecified, uncomplicated; Z88.0 Allergy status to penicillin; Z88.5 Allergy status to narcotic agent; Z86.73 Personal history of transient ischemic attack (TIA), and cerebral infarction without residual deficits; Y90.4 Blood alcohol level of 80-99 mg/100 ml
CPT/HCPCS: 36415; 99284; G0480; 80320

== ENCOUNTER → 2024-11-07 | Outpatient (CLI) | payer BC ==
--- NOTE | 2024-11-07 07:56 | MM ---
Reason for Exam: Screening (asymptomatic). Last mammogram was performed 1 year(s) and 1 month(s) ago. Patient History: Menarche at age 13. Patient has no children. Hysterectomy at age 40. Endometrial cancer. Maternal aunt had breast cancer, age 45. Sister had breast cancer, age 56. Risk Values: Stacy 5 year model risk: 3.2%. NCI Lifetime model risk: 12.4%. Prior Study Comparison: 02/09/2013 Bilateral Screening Mammogram, [facility]. 05/20/2016 Bilateral Screening Mammogram, [facility]. 09/25/2023 Bilateral MG screening mammo w CAD, [facility]. Tissue Density: The breasts are heterogeneously dense, which may obscure small masses. Findings: Analyzed By CAD. There is no suspicious group of microcalcifications or new suspicious mass in either breast. Overall Assessment: Benign, BI-RAD 2 Management: Screening Mammogram of both breasts in 1 year. . Patient should continue monthly self-breast exams. A clinical breast exam by your physician is recommended on an annual basis. This exam should not preclude additional follow-up of suspicious palpable abnormalities. Note on Stacy scores and lifetime risk: 1. A Stacy score greater than 3% is considered moderate risk. If this is the case, consider specialist referral to assess eligibility for a risk reducing agent. 2. If overall lifetime risk for the development of breast cancer is 20% or higher, the patient may qualify for future screening with alternating mammogram and breast MRI. [facility], , 11/07/2024 7:54 AM. Electronically signed and approved by: Danny Camacho M.D. Radiologis
== END | disposition home or self-care (01) ==
LOC: RADMAMWWP 07:05
PROVIDERS: ATTEND Family Medicine
DX: Z12.31 Encounter for screening mammogram for malignant neoplasm of breast (principal); R92.333 Mammographic heterogeneous density, bilateral breasts; Z80.3 Family history of malignant neoplasm of breast
CPT/HCPCS: 77063; 77067

== ENCOUNTER 2024-12-29 23:14 | Emergency (ER) | payer BC ==
[2024-12-29 23:44] LABS: Basophils # (A) 0.06 10*3/uL (0.00-0.10); Basophils % (A) 0.8 %; Eosinophils % (A) 2.6 %; HCT 35.2 % (37.2-46.3); HGB 11.3 g/dL (12.0-15.0); Lymphocytes # (A) 2.85 10*3/uL (0.90-5.00); Lymphocytes % (A) 36.7 %; MCH 26.6 pg (27.0-32.0); MCHC 32.1 g/dL (32.0-37.0); MCV 82.8 fL (80.0-97.0); Monocytes # (A) 0.59 10*3/uL (0.20-1.00); Monocytes % (A) 7.6 %; Neutrophils # (A) 4.05 10*3/uL (1.80-7.70); Platelet Count 390 10*3/uL (140-440); RBC 4.25 10*6/uL (4.10-5.20); RDW 15.4 % (11.5-14.5); WBC 7.77 10*3/uL (4.50-10.00)
[2024-12-29 23:53] LABS: INR 0.9 (<1.2); Prothrombin Time 10.5 sec (10.0-12.5)
[2024-12-30 00:18] LABS: ALT 9 U/L (4-34); AST 16 U/L (14-36); African American GFR (CKD) 89 (>60 ml/min/1.73 sqM); Albumin 4.1 g/dL (3.5-5.0); Alkaline Phosphatase 57 U/L (38-126); Anion Gap 9 mmol/L; Blood Urea Nitrogen 20 mg/dL (7-17); Calcium 9.3 mg/dL (8.4-10.2); Carbon Dioxide 21 mmol/L (22-30); Chloride 111 mmol/L (98-107); Glucose 95 mg/dL (74-99); Non-African American GFR(CKD) 78 (>60 ml/min/1.73 sqM); Potassium 3.7 mmol/L (3.5-5.1); Sodium 141 mmol/L (137-145); Total Bilirubin 0.6 mg/dL (0.2-1.3); Total Protein 6.6 g/dL (6.3-8.2)
--- NOTE | 2024-12-30 00:39 | ED ---
General Adult HPI - General Chief complaint: Chest Pain Stated complaint: chest pain Time Seen by Provider: 12/30/24 00:27 Source: patient Mode of arrival: EMS - History of Present Illness Initial comments: Dictation was produced using [employer] dictation software. please excuse any gr ammatical, word or spelling errors. Chief Complaint: 64-year-old female presents emergency department for chest pain headache History of Present Illness: Patient 64-year-old female presents emergency for chest pain and headache. Patient states that she has history of coronary artery disease and stents. States that she has a crampy sensation to her left lower anterior chest. She also complains of a headache. She has a history of headaches. States that her headache feels like her usual headache. The ROS documented in this emergency department record has been reviewed and confirmed by me. Those systems with pertinent positive or negative responses have been documented in the HPI. All other systems are other negative and/or noncontributory. - Related Data Home Medications Medication Instructions Recorded Confirmed Aspirin 81 mg PO DAILY 09/04/14 05/03/21 Simvastatin [Zocor] 40 mg PO DAILY 09/04/14 05/03/21 Cyanocobalamin (Vitamin B-12) 1,000 mcg PO DAILY 04/15/21 05/03/21 [Vitamin B-12] Previous Rx's Medication Instructions Recorded Acetaminophen Tab [Tylenol] 650 mg PO Q4HR PRN tab 05/07/21 Meloxicam [Mobic] 7.5 mg PO DAILY 30 Days tab 05/07/21 Pantoprazole [Protonix] 40 mg PO BID 30 Days tab 05/07/21 Nicotine 14Mg/24Hr Patch [Habitrol] 1 patch TRANSDERM DAILY 14 Days 05/09/21 patch OLANZapine [ZyPREXA] 7.5 mg PO HS 30 Days tab 05/09/21 Cyclobenzaprine [Flexeril] 10 mg PO TID PRN #15 tab 05/03/22 Lidocaine 5% Patch [Lidoderm 5% 1 patch TOPICAL DAILY PRN #7 patch 05/03/22 Patch] Allergies Allergy/AdvReac Type Severity Reaction Status Date / Time atorvastatin calcium Allergy Severe Swelling Verified 12/29/24 23:25 [From Lipitor] Penicillins Allergy Severe THROAT Verified 12/29/24 23:25 SWELLS pregabalin [From Lyrica] Allergy Intermediate Hallucinati Verified 12/29/24 23:25 ons hydrocodone bitartrate AdvReac Intermediate SHAKING , Verified 12/29/24 23:25 [From Vicodin] NAUSEA Review of Systems ROS Statement: Those systems with pertinent positive or pertinent negative responses have been documented in the HPI. ROS Other: All systems not noted in ROS Statement are negative. Past Medical History Past Medical History: Cancer, Chest Pain / Angina, CVA/TIA, GERD/Reflux, Hyperlipidemia, Hypertension, Myocardial Infarction ([place]), Seizure Disorder Additional Past Medical History / Comment(s): ovarian ca, uterine ca. per previous hx:liver mass, pituitary tumor but pt denies any sx, chemo or radiation.stress test 2015 . "boarderline diabetic- no meds, no bs checks- watches diet" Last Myocardial Infarction Date:: 2005 History of Any Multi-Drug Resistant Organisms: None Reported Past Surgical History: Bariatric Surgery, Ear Surgery, Heart Catheterization With Stent Additional Past Surgical History / Comment(s): oopherectomy, partial hystere ctomy,lap band 2011- removed & gastric sleeve in 2012(Dr. Maria)"Lt ear surgery stated has metal in ear so no mri's", heart cath with stent 2005- not sure if she had stent in 2011. Past Anesthesia/Blood Transfusion Reactions: Motion Sickness Additional Past Anesthesia/Blood Transfusion Reaction / Comment(s): hx claustraphobia Date of Last Stent Placement:: 2011? Past Psychological History: Anxiety, Depression Smoking Status: Current every day smoker Past Alcohol Use History: None Reported Past Drug Use History: Marijuana - Past Family History Mother Family Medical History: Cancer, COPD, CVA/TIA, Dementia, Hypertension Additional Family Medical History / Comment(s): colon cancer, Father Family Medical History: Cancer, Diabetes Mellitus, Hypertension, Myocardial Infarction ([place]) Additional Family Medical History / Comment(s): Colon cancer, bipolar, depression Sister(s) Family Medical History: Cancer Additional Family Medical History / Comment(s): 2 sisters with ovarian & uterine ca-one 2013 General Exam - General Exam Comments Initial Comments: PHYSICAL EXAM: General Impression: Alert and oriented x3, not in acute distress HEENT: Normocephalic atraumatic, extra-ocular movements intact, pupils equal and reactive to light bilaterally, mucous membranes moist. Cardiovascular: Heart regular rate and rhythm Chest: Able to complete full sentences, no retractions, no tachypnea Abdomen: abdomen soft, non-tender, non-distended, no organomegaly Musculoskeletal: Pulses present and equal in all extremities, no peripheral edema Motor: no focal deficits noted Neurological: CN II-XII grossly intact, no focal motor or sensory deficits noted Skin: Intact with no visualized rashes Psych: Normal affect and mood Course Vital Signs 12/29/24 12/30/24 12/30/24 23:20 00:25 00:43 Temperature 98.3 F Pulse Rate 60 57 L 56 L Respiratory 18 18 16 Rate Blood Pressure 164/86 191/100 154/82 O2 Sat by Pulse 99 97 97 Oximetry 12/30/24 01:46 Temperature Pulse Rate 55 L Respiratory 16 Rate Blood Pressure 147/76 O2 Sat by Pulse 98 Oximetry EKG Findings - EKG Comments: EKG Findings:: My EKG interpretation: Ventricular rate 59, sinus bradycardia, WI 176, QRS 85, QTc 431. No WI prolongation, no QTC prolongation, no ST or T-wave changes noted. EKG compared to November 09, 2017 showing no changes. Overall, this EKG is unremarkable Medical Decision Making - Medical Decision Making Was pt. sent in by a medical professional or institution (, PA, QUALITY HEAD, urgent care, hospital, or half-way...) When possible be specific @ -No Did you speak to anyone other than the patient for history (EMS, parent, family, police, friend...)? What history was obtained from this source @ -No Did you review nursing and triage notes (agree or disagree)? Why? @ -I reviewed and agree with nursing and triage notes Were old charts reviewed (outside hosp., previous admission, EMS record, old EKG, old radiological studies, urgent care reports/EKG's, half-way records)? Report findings @ -No old charts were reviewed Differential Diagnosis (chest pain, altered mental status, abdominal pain women, abdominal pain men, vaginal bleeding, musculoskeletal, weakness, fever, dyspnea, syncope, headache, dizziness, GI bleed, back pain, seizure, CVA, palpatations, mental health)? @ -Differential Chest Pain: Stable Angina, Unstable Angina, STEMI, NSTEMI Aortic Dissection, Pneumothorax, Musculoskeletal, Esophageal Spasm GERD, Cholecystitis, Pancreatitis, Zoster, this is not meant to be an all-inclusive list. EKG interpreted by me (3pts min.). @ -See above X-rays interpreted by me (1pt min.). @ -Chest x-ray shows no acute processes CT interpreted by me (1pt min.). @ -None done U/S interpreted by me (1pt. min.). @ -None done What testing was considered but not performed or refused? (CT, X-rays, U/S, labs)? Why? @ -None What meds were considered but not given or refused? Why? @ -None Was smoking cessation discussed for >3mins.? @ -No Were there social determinants of health that impacted care today? How? (Homelessness, low income, unemployed, alcoholism, drug addiction, transportation, low edu. Level, literacy, decrease access to med. care, m[facility], rehab)? @ -No Was there de-escalation of care discussed even if they declined (Discuss DNR or withdrawal of care, Hospice)? DNR status @ -No What co-morbidities impacted this encounter? (DM, HTN, Smoking, COPD, CAD, Cancer, CVA, ARF, Chemo, Hep., AIDS, mental health diagnosis, sleep apnea, morbid obesity)? @ -History of coronary artery disease Was patient admitted / discharged? Hospital course, mention meds given and route, prescriptions, significant lab abnormalities, going to OR and other pertinent info. @ -64-year-old female with history of coronary artery disease and coronary artery stents presents to the emergency department atypical chest pain typical features. Vital signs upon arrival are within acceptable limits. EKG is unremarkable. Laboratory evaluation is unremarkable. Troponin is negative. It was discussed with patient that the recommendation is for her to be admitted for observation due to high risk features. She declines and would prefer to be discharged states that she will follow-up with her county bailiff soon. Patient given strict return precautions. She understands that heart attack cannot be ruled out with only 1 set of troponin blood test. Did you discuss the management of the patient with other professionals (professionals i.e. , PA, QUALITY HEAD, lab, RT, psych nurse, administrator social welfare, chemist helper, teacher, sheriffs officer, pillowcase sewer)? Give summary @ -No Was critical care preformed (if so, how long)? @ -No Undiagnosed new problem with uncertain prognosis? @ -No Drug Therapy requiring intensive monitoring for toxicity (Heparin, Nitro, Insulin, Cardizem)? @ -No Were any procedures done? @ -No Diagnosis/symptom? Acute, or Chronic, or Acute on Chronic? Uncomplicated (without systemic symptoms) or Complicated (systemic symptoms)? @ -Chest pain Side effects of treatment? @ -No Exacerbation, Progression, or Severe Exacerbation? @ -No Poses a threat to life or bodily function? How? (Chest pain, [place], [place], pneumonia, PE, COPD, DKA, ARF, appy, cholecystitis, CVA, Diverticulitis, Homicidal, Suicidal, threat to staff... and all critical care pts) @ -yes - Lab Data Result diagrams: 12/29/24 23:32 12/29/24 23:32 Lab Results 12/29/24 12/29/24 12/29/24 Range/Units 23:32 23:32 23:32 WBC 7.77 (4.50-10.00) 10*3/uL RBC 4.25 (4.10-5.20) 10*6/uL Hgb 11.3 L (12.0-15.0) g/dL Hct 35.2 L (37.2-46.3) % MCV 82.8 (80.0-97.0) fL MCH 26.6 L (27.0-32.0) pg MCHC 32.1 (32.0-37.0) g/dL Plt Count 390 (140-440) 10*3/uL MPV 9.0 L (9.5-12.2) fL Immature Gran % (Auto) 0.3 % Neutrophils % 52.0 % Lymphocytes % 36.7 % Monocytes % 7.6 % Eosinophils % 2.6 % Basophils % 0.8 % Immature Gran # 0.02 (0.00-0.04) 10*3/uL Neutrophils # 4.05 (1.80-7.70) 10*3/uL Lymphocytes # 2.85 (0.90-5.00) 10*3/uL Monocytes # 0.59 (0.20-1.00) 10*3/uL Eosinophils # 0.20 (0.04-0.35) 10*3/uL Basophils # 0.06 (0.00-0.10) 10*3/uL PT 10.5 (10.0-12.5) sec INR 0.9 (<1.2) APTT 25.0 (22.0-30.0) sec Sodium 141 (137-145) mmol/L Potassium 3.7 (3.5-5.1) mmol/L Chloride 111 H (98-107) mmol/L Carbon Dioxide 21 L (22-30) mmol/L Anion Gap 9 mmol/L BUN 20 H (7-17) mg/dL Creatinine 0.81 (0.52-1.04) mg/dL Est GFR (CKD-EPI)AfAm 89 (>60 ml/min/1.73 sqM) Est GFR (CKD-EPI)NonAf 78 (>60 ml/min/1.73 sqM) Glucose 95 (74-99) mg/dL Calcium 9.3 (8.4-10.2) mg/dL Magnesium 2.0 (1.6-2.3) mg/dL Total Bilirubin 0.6 (0.2-1.3) mg/dL AST 16 (14-36) U/L ALT 9 (4-34) U/L Alkaline Phosphatase 57 (38-126) U/L Troponin I (0.000-0.034) ng/mL Total Protein 6.6 (6.3-8.2) g/dL Albumin 4.1 (3.5-5.0) g/dL / Range/Units 23:32 WBC (4.50-10.00) 10*3/uL RBC (4.10-5.20) 10*6/uL Hgb (12.0-15.0) g/dL Hct (37.2-46.3) % MCV (80.0-97.0) fL MCH (27.0-32.0) pg MCHC (32.0-37.0) g/dL Plt Count (140-440) 10*3/uL MPV (9.5-12.2) fL Immature Gran % (Auto) % Neutrophils % % Lymphocytes % % Monocytes % % Eosinophils % % Basophils % % Immature Gran # (0.00-0.04) 10*3/uL Neutrophils # (1.80-7.70) 10*3/uL Lymphocytes # (0.90-5.00) 10*3/uL Monocytes # (0.20-1.00) 10*3/uL Eosinophils # (0.04-0.35) 10*3/uL Basophils # (0.00-0.10) 10*3/uL PT (10.0-12.5) sec INR (<1.2) APTT (22.0-30.0) sec Sodium (137-145) mmol/L Potassium (3.5-5.1) mmol/L Chloride (98-107) mmol/L Carbon Dioxide (22-30) mmol/L Anion Gap mmol/L BUN (7-17) mg/dL Creatinine (0.52-1.04) mg/dL Est GFR (CKD-EPI)AfAm (>60 ml/min/1.73 sqM) Est GFR (CKD-EPI)NonAf (>60 ml/min/1.73 sqM) Glucose (74-99) mg/dL Calcium (8.4-10.2) mg/dL Magnesium (1.6-2.3) mg/dL Total Bilirubin (0.2-1.3) mg/dL AST (14-36) U/L ALT (4-34) U/L Alkaline Phosphatase (38-126) U/L Troponin I <0.012 (0.000-0.034) ng/mL Total Protein (6.3-8.2) g/dL Albumin (3.5-5.0) g/dL Disposition Clinical Impression: Chest pain Disposition: HOME SELF-CARE Condition: Fair Instructions (If sedation given, give patient instructions): Chest Pain (ED) Is patient prescribed a controlled substance at d/c from ED?: No Referrals: Heidy Toro DO [Primary Care Provider] - 1-2 days Time of Disposition: 02:19
[2024-12-30 00:43] VITALS: RESP 16
[2024-12-30] MEDS: ASPIRIN 81 MG PO STA (00:43)
--- NOTE | 2024-12-30 01:55 | XR ---
EXAM: XR Chest, 2 Views CLINICAL HISTORY: ITS.REASON XR Reason: Chest Pain TECHNIQUE: Frontal and lateral views of the chest. COMPARISON: No relevant prior studies available. FINDINGS: Lungs: No consolidation or mass. Pleural space: No effusion. Heart: cardiomegaly. Bones/joints: No acute findings. IMPRESSION: No acute cardiopulmonary process.
[2024-12-30 02:29] VITALS: BP 157/77; PULSE 57; TEMP 98.4
== END 2024-12-30 02:29 | disposition home or self-care (01) ==
LOC: EC 23:14
DX: R07.89 Other chest pain (principal); I11.9 Hypertensive heart disease without heart failure; F17.200 Nicotine dependence, unspecified, uncomplicated; Z88.0 Allergy status to penicillin; Z88.8 Allergy status to other drugs, medicaments and biological substances
CPT/HCPCS: 36415; 71046; 80053; 83735; 84484; 85025; 85610; 85730; 93005; 99285